=== PATIENT | female | born 1935 | race Caucasian/White ===

== ENCOUNTER → 2016-07-12 | Outpatient (CLI) | payer MEDICARE, BC, OTHER ==
--- NOTE | 2016-07-12 17:51 | REP ---
Chest x-ray: Two views: History: Paroxysmal atrial fibrillation. Comparison chest x-ray: 11/21/2015. Findings: Cardiomegaly is again observed with a bipolar pacemaker in place unchanged from the prior study. Pulmonary vasculature is not increased. The pleural angles are sharp. Lung iraheta are symmetrically aerated and clear. There are degenerative changes in the thoracic spine and aorta. There is advanced arthropathy affecting the shoulders. Impression: Mild to moderate cardiomegaly unchanged from prior study with bipolar pacemaker. Otherwise no acute disease. Signed by Bret Quiroz MD 07/12/2016 07:47 P
[2016-07-12 17:58] LABS: ALBUMIN 3.9 GM/DL (3.2-5.2); ALBUMIN/GLOBULIN RATIO 1.11 (1.00-1.93); CALCIUM LEVEL 8.8 MG/DL (8.8-10.2); CREATININE FOR GFR 1.05 MG/DL (0.55-1.02); GLOMERULAR FILTRATION RATE 53.5 (>32); MAGNESIUM LEVEL 2.2 MG/DL (1.8-2.4); POTASSIUM SERUM 4.2 MEQ/L (3.5-5.1); TOTAL PROTEIN 7.4 GM/DL (6.4-8.2)
== END ==
LOC: M LAB 16:12
PROVIDERS: ATTEND Physician Assistant
DX: I48.0 Paroxysmal atrial fibrillation (principal)

== ENCOUNTER → 2017-01-11 | Outpatient (REF) | payer MEDICARE, OTHER ==
[2017-01-11 16:11] LABS: MEAN CORPUSCULAR HEMOGLOBIN 31.1 pg (27.0-33.0); MEAN CORPUSCULAR HGB CONC 32.2 g/dl (32.0-36.5); MEAN CORPUSCULAR VOLUME 96.7 fl (80.0-96.0); RED CELL DISTRIBUTION WIDTH 14.8 % (11.5-14.5); WHITE BLOOD COUNT 6.6 K/mm3 (4.0-10.0)
[2017-01-11 16:15] LABS: ALBUMIN 3.9 GM/DL (3.2-5.2); ALBUMIN/GLOBULIN RATIO 1.08 (1.00-1.93); CREATININE FOR GFR 1.02 MG/DL (0.55-1.02); GLOMERULAR FILTRATION RATE 55.4 (>32); MAGNESIUM LEVEL 2.3 MG/DL (1.8-2.4); POTASSIUM SERUM 4.4 MEQ/L (3.5-5.1); TOTAL PROTEIN 7.5 GM/DL (6.4-8.2)
== END ==
LOC: M LABDRAW1 15:39
PROVIDERS: ATTEND Physician Assistant
DX: I11.0 Hypertensive heart disease with heart failure (principal); I48.0 Paroxysmal atrial fibrillation

== ENCOUNTER → 2017-07-18 | Outpatient (REF) | payer MEDICARE, OTHER ==
[2017-07-18 19:09] LABS: HEMATOCRIT 44.8 % (36.0-47.0); HEMOGLOBIN 14.5 g/dl (12.0-16.0); MEAN CORPUSCULAR HEMOGLOBIN 31.5 pg (27.0-33.0); MEAN CORPUSCULAR HGB CONC 32.4 g/dl (32.0-36.5); MEAN CORPUSCULAR VOLUME 97.4 fl (80.0-96.0); PLATELET COUNT, AUTOMATED 173 10^3/uL (150-450); RED CELL DISTRIBUTION WIDTH 14.6 % (11.5-14.5); WHITE BLOOD COUNT 6.6 10^3/uL (4.0-10.0)
[2017-07-18 19:43] LABS: ALBUMIN 4.2 GM/DL (3.2-5.2); ALBUMIN/GLOBULIN RATIO 1.11 (1.00-1.93); ALKALINE PHOSPHATASE 68 U/L (45-117); ALT/SGPT 24 U/L (12-78); ANION GAP 8 MEQ/L (8-16); AST/SGOT 30 U/L (7-37); BILIRUBIN,TOTAL 1.2 MG/DL (0.2-1.0); BLOOD UREA NITROGEN 28 MG/DL (7-18); CALCIUM LEVEL 9.2 MG/DL (8.8-10.2); CARBON DIOXIDE LEVEL 28 MEQ/L (21-32); CHLORIDE LEVEL 102 MEQ/L (98-107); CREATININE FOR GFR 0.95 MG/DL (0.55-1.02); GLUCOSE, FASTING 127 MG/DL (70-100); POTASSIUM SERUM 4.3 MEQ/L (3.5-5.1); SODIUM LEVEL 138 MEQ/L (136-145)
== END ==
LOC: M LABDRAW1 15:15
DX: I48.0 Paroxysmal atrial fibrillation (principal)
CPT/HCPCS: 83735

== ENCOUNTER 2017-12-18 13:07 | Inpatient (IN) | payer MEDICARE, BC, OTHER ==
[2017-12-18] MEDS: CANDESARTAN 16 MG TABLET PO (09:00)
[2017-12-18] MEDS: MULTIVITAMINS/MINERALS THERAP 1 TAB PO (09:00)
[2017-12-18] MEDS: VITAMIN D 1,000 INTERNATIONAL UNITS TABLET PO (09:00)
[2017-12-18] MEDS: BISOPROLOL FUMARATE 5 MG TAB PO (09:00)
[2017-12-18] MEDS: AMIODARONE 200 MG TAB (PACERONE) PO (09:00)
[2017-12-18] MEDS: ASPIRIN 81 MG ENTERIC TAB PO (09:00)
[~2017-12-18 13:07] MED LIST: CHLORTHALIDONE 12.5MG PER 1/2 TABLET PO; CHLORTHALIDONE 25 MG TAB PO
[2017-12-18 14:17] LABS: BASO % 0.4 % (0.0-1.0); EOS % 0.1 % (0.0-3.0); HEMATOCRIT 39.6 % (36.0-47.0); HEMOGLOBIN 12.8 g/dl (12.0-15.5); IMMATURE GRANULOCYTE % 0.5 % (0-3.0); LYMPH # 0.4 10^3/uL (1.5-4.5); LYMPH % 4.3 % (24.0-44.0); MEAN CORPUSCULAR HEMOGLOBIN 30.4 pg (27.0-33.0); MEAN CORPUSCULAR HGB CONC 32.3 g/dl (32.0-36.5); MEAN CORPUSCULAR VOLUME 94.1 fl (80.0-96.0); MONO # 0.7 10^3/uL (0.0-0.8); MONO % 8.2 % (0.0-5.0); NEUTROPHILS % 86.5 % (36.0-66.0); PLATELET COUNT, AUTOMATED 149 10^3/uL (150-450); RED BLOOD COUNT 4.21 10^6/uL (4.00-5.40); RED CELL DISTRIBUTION WIDTH 14.6 % (11.5-14.5); WHITE BLOOD COUNT 8.1 10^3/uL (4.0-10.0)
[2017-12-18 14:38] LABS: ALBUMIN 3.2 GM/DL (3.2-5.2); ALBUMIN/GLOBULIN RATIO 0.82 (1.00-1.93); ALKALINE PHOSPHATASE 101 U/L (45-117); ALT/SGPT 25 U/L (12-78); ANION GAP 10 MEQ/L (8-16); AST/SGOT 48 U/L (7-37); BILIRUBIN,DIRECT 0.7 MG/DL (0.0-0.2); BILIRUBIN,TOTAL 2.1 MG/DL (0.2-1.0); BLOOD UREA NITROGEN 32 MG/DL (7-18); CARBON DIOXIDE LEVEL 23 MEQ/L (21-32); CHLORIDE LEVEL 109 MEQ/L (98-107); CPK CREATINE PHOSPHOKINASE 711 U/L (26-192); CREATININE FOR GFR 1.02 MG/DL (0.55-1.30); GLOMERULAR FILTRATION RATE 55.2 (>32); GLUCOSE, FASTING 128 MG/DL (70-100); POTASSIUM SERUM 4.2 MEQ/L (3.5-5.1); SODIUM LEVEL 142 MEQ/L (136-145); TOTAL PROTEIN 7.1 GM/DL (6.4-8.2); TROPONIN I 0.03 NG/ML (< 0.10)
[2017-12-18 14:39] LABS: CK-MB VALUE MASS 12.6 NG/ML (<3.6); MB/CK RELATIVE INDEX 1.77 (< OR =4)
[2017-12-18] MEDS: NS 1,000 ML IV ×3 (16:00→23:48)
[2017-12-18 16:37] LABS: AMORPHOUS SEDIMENT RFX SMALL (NEGATIVE); KETONE, URINE AUTO RFX NEGATIVE (NEGATIVE); LEUKOCYTE ESTERASE UR AUTO RFX NEGATIVE (NEGATIVE); MUCUS, URINE RFX SMALL (NEGATIVE); NITRITE, URINE AUTO RFX NEGATIVE (NEGATIVE); RBC, URINE AUTO RFX 3 /HPF (0-3); SPECIFIC GRAVITY UR AUTO RFX 1.026 (1.002-1.035); SQUAM EPITHELIAL CELL UR AURFX 3 /HPF (0-6); WBC, URINE AUTO RFX 3 /HPF (0-3)
[2017-12-18] MEDS: NAPROXEN 250 MG TAB PO (17:00)
[2017-12-18] MEDS: HumaLOG INSULIN (NovoLOG) PER UNIT SC (17:30)
[2017-12-18] MEDS ORDERED: GLUCOSE 4 GM CHEW TABLET PO (18:00)
[2017-12-18] MEDS ORDERED: GLUCAGON FOR INJ 1 MG VIAL (J1610) SC (18:00)
[2017-12-18] MEDS ORDERED: zolPIDEM TARTRATE 10MG TAB PO (18:00)
[2017-12-18] MEDS ORDERED: DEXTROSE 50% 50 ML SYRINGE IV (18:00)
[2017-12-18 19:07] LABS: CPK CREATINE PHOSPHOKINASE 971 U/L (26-192); TROPONIN I 0.03 NG/ML (< 0.10)
[2017-12-18 19:08] LABS: CK-MB VALUE MASS 14.2 NG/ML (<3.6); MB/CK RELATIVE INDEX 1.46 (< OR =4)
[2017-12-18] MEDS ORDERED: PILL CRUSHER/CUTTER 1 EACH XX (19:15)
[2017-12-18] MEDS: FUROSEMIDE 20 MG/2 ML VIAL (J1940) IV (19:30)
[2017-12-18] MEDS: APIXABAN 5 MG TAB (ELIQUIS) PO (21:00)
[2017-12-18] MEDS: ATORVASTATIN 10 MG TAB PO (21:00)
[2017-12-18] MEDS: NYSTATIN 100,000 UNITS/GM TOPICAL PWD 15 GM TOP (23:50)
[2017-12-19 02:28] LABS: TROPONIN I 0.04 NG/ML (< 0.10)
[2017-12-19 02:31] LABS: CPK CREATINE PHOSPHOKINASE 999 U/L (26-192)
[2017-12-19] MEDS: NS 1,000 ML IV ×2 (04:00→07:38)
[2017-12-19] MEDS: LEVOTHYROXINE 50MCG TABLET (0.05MG) PO (05:50)
[2017-12-19] MEDS: CEPACOL LOZENGE PO (06:34)
[2017-12-19 07:10] LABS: HEMATOCRIT 36.8 % (36.0-47.0); HEMOGLOBIN 11.9 g/dl (12.0-15.5); MEAN CORPUSCULAR HEMOGLOBIN 30.4 pg (27.0-33.0); MEAN CORPUSCULAR HGB CONC 32.3 g/dl (32.0-36.5); MEAN CORPUSCULAR VOLUME 93.9 fl (80.0-96.0); PLATELET COUNT, AUTOMATED 106 10^3/uL (150-450); RED BLOOD COUNT 3.92 10^6/uL (4.00-5.40); RED CELL DISTRIBUTION WIDTH 14.7 % (11.5-14.5); WHITE BLOOD COUNT 5.3 10^3/uL (4.0-10.0)
[2017-12-19] MEDS: HumaLOG INSULIN (NovoLOG) PER UNIT SC ×3 (07:30→17:40)
[2017-12-19 07:39] LABS: ANION GAP 8 MEQ/L (8-16); BLOOD UREA NITROGEN 29 MG/DL (7-18); CALCIUM LEVEL 7.3 MG/DL (8.8-10.2); CARBON DIOXIDE LEVEL 24 MEQ/L (21-32); CHLORIDE LEVEL 112 MEQ/L (98-107); CPK CREATINE PHOSPHOKINASE 1071 U/L (26-192); CREATININE FOR GFR 1.06 MG/DL (0.55-1.30); GLOMERULAR FILTRATION RATE 52.8 (>32); GLUCOSE, FASTING 108 MG/DL (70-100); POTASSIUM SERUM 3.6 MEQ/L (3.5-5.1); SODIUM LEVEL 144 MEQ/L (136-145)
[2017-12-19] MEDS: ASPIRIN 81 MG ENTERIC TAB PO (09:00)
[2017-12-19] MEDS: MULTIVITAMINS/MINERALS THERAP 1 TAB PO (09:00)
[2017-12-19] MEDS: APIXABAN 5 MG TAB (ELIQUIS) PO ×2 (09:00→20:31)
[2017-12-19] MEDS: CANDESARTAN 16 MG TABLET PO (09:00)
[2017-12-19] MEDS: AMIODARONE 200 MG TAB (PACERONE) PO (09:00)
[2017-12-19] MEDS: VITAMIN D 1,000 INTERNATIONAL UNITS TABLET PO (09:00)
[2017-12-19] MEDS: NYSTATIN 100,000 UNITS/GM TOPICAL PWD 15 GM TOP ×2 (09:00→20:31)
[2017-12-19] MEDS: PANTOPRAZOLE 40MG TAB (PROTONIX) PO (09:00)
[2017-12-19] MEDS: BISOPROLOL FUMARATE 5 MG TAB PO (09:00)
[2017-12-19 11:30] LABS: TROPONIN I 0.03 NG/ML (< 0.10)
[2017-12-19 11:41] LABS: CK-MB VALUE MASS 9.9 NG/ML (<3.6); CPK CREATINE PHOSPHOKINASE 1184 U/L (26-192); MB/CK RELATIVE INDEX 0.83 (< OR =4)
[2017-12-19 12:03] LABS: BEDSIDE GLUCOSE 226 MG/DL (83-110)
[2017-12-19 18:48] LABS: CPK CREATINE PHOSPHOKINASE 1275 U/L (26-192)
[2017-12-19] MEDS: ATORVASTATIN 10 MG TAB PO (20:31)
[2017-12-19 21:13] LABS: BEDSIDE GLUCOSE 131 MG/DL (83-110)
[2017-12-19 21:13] LABS: BEDSIDE GLUCOSE 123 MG/DL (83-110)
[2017-12-20 05:37] LABS: HEMOGLOBIN 11.9 g/dl (12.0-15.5); MEAN CORPUSCULAR HEMOGLOBIN 29.7 pg (27.0-33.0); MEAN CORPUSCULAR HGB CONC 31.3 g/dl (32.0-36.5); MEAN CORPUSCULAR VOLUME 94.8 fl (80.0-96.0); PLATELET COUNT, AUTOMATED 122 10^3/uL (150-450); RED BLOOD COUNT 4.01 10^6/uL (4.00-5.40); RED CELL DISTRIBUTION WIDTH 14.6 % (11.5-14.5); WHITE BLOOD COUNT 6.6 10^3/uL (4.0-10.0)
[2017-12-20] MEDS: LEVOTHYROXINE 50MCG TABLET (0.05MG) PO (05:39)
[2017-12-20 06:18] LABS: ALBUMIN/GLOBULIN RATIO 0.88 (1.00-1.93); ALKALINE PHOSPHATASE 89 U/L (45-117); ALT/SGPT 31 U/L (12-78); ANION GAP 7 MEQ/L (8-16); AST/SGOT 72 U/L (7-37); BILIRUBIN,TOTAL 1.7 MG/DL (0.2-1.0); BLOOD UREA NITROGEN 29 MG/DL (7-18); CALCIUM LEVEL 7.6 MG/DL (8.8-10.2); CARBON DIOXIDE LEVEL 24 MEQ/L (21-32); CHLORIDE LEVEL 113 MEQ/L (98-107); CPK CREATINE PHOSPHOKINASE 1122 U/L (26-192); GLOMERULAR FILTRATION RATE 50.6 (>32); GLUCOSE, FASTING 131 MG/DL (70-100); MAGNESIUM LEVEL 1.9 MG/DL (1.8-2.4); POTASSIUM SERUM 4.2 MEQ/L (3.5-5.1); SODIUM LEVEL 144 MEQ/L (136-145); TOTAL PROTEIN 6.4 GM/DL (6.4-8.2)
[2017-12-20] MEDS: PANTOPRAZOLE 40MG TAB (PROTONIX) PO (09:44)
[2017-12-20] MEDS: CANDESARTAN 16 MG TABLET PO (09:44)
[2017-12-20] MEDS: HumaLOG INSULIN (NovoLOG) PER UNIT SC ×3 (09:44→18:36)
[2017-12-20] MEDS: MULTIVITAMINS/MINERALS THERAP 1 TAB PO (09:45)
[2017-12-20] MEDS: APIXABAN 5 MG TAB (ELIQUIS) PO ×2 (09:45→20:27)
[2017-12-20] MEDS: VITAMIN D 1,000 INTERNATIONAL UNITS TABLET PO (09:45)
[2017-12-20] MEDS: BISOPROLOL FUMARATE 5 MG TAB PO (09:45)
[2017-12-20] MEDS: AMIODARONE 200 MG TAB (PACERONE) PO (09:45)
[2017-12-20] MEDS: ASPIRIN 81 MG ENTERIC TAB PO (09:45)
[2017-12-20] MEDS: NYSTATIN 100,000 UNITS/GM TOPICAL PWD 15 GM TOP ×2 (09:46→20:27)
[2017-12-20 16:49] LABS: CPK CREATINE PHOSPHOKINASE 1138 U/L (26-192)
[2017-12-20] MEDS: ATORVASTATIN 10 MG TAB PO (20:27)
[2017-12-20 21:00] LABS: BEDSIDE GLUCOSE 142 MG/DL (83-110)
[2017-12-20 21:00] LABS: BEDSIDE GLUCOSE 158 MG/DL (83-110)
[2017-12-21] MEDS: LEVOTHYROXINE 50MCG TABLET (0.05MG) PO (05:28)
[2017-12-21 06:01] LABS: HEMATOCRIT 36.7 % (36.0-47.0); HEMOGLOBIN 11.7 g/dl (12.0-15.5); MEAN CORPUSCULAR HEMOGLOBIN 29.9 pg (27.0-33.0); MEAN CORPUSCULAR HGB CONC 31.9 g/dl (32.0-36.5); MEAN CORPUSCULAR VOLUME 93.9 fl (80.0-96.0); PLATELET COUNT, AUTOMATED 137 10^3/uL (150-450); RED BLOOD COUNT 3.91 10^6/uL (4.00-5.40); RED CELL DISTRIBUTION WIDTH 14.9 % (11.5-14.5); WHITE BLOOD COUNT 7.1 10^3/uL (4.0-10.0)
[2017-12-21 06:26] LABS: ALBUMIN 2.9 GM/DL (3.2-5.2); ALBUMIN/GLOBULIN RATIO 0.81 (1.00-1.93); ALKALINE PHOSPHATASE 92 U/L (45-117); ALT/SGPT 34 U/L (12-78); ANION GAP 9 MEQ/L (8-16); AST/SGOT 66 U/L (7-37); BILIRUBIN,TOTAL 1.7 MG/DL (0.2-1.0); BLOOD UREA NITROGEN 33 MG/DL (7-18); CALCIUM LEVEL 7.5 MG/DL (8.8-10.2); CARBON DIOXIDE LEVEL 22 MEQ/L (21-32); CHLORIDE LEVEL 114 MEQ/L (98-107); CREATININE FOR GFR 0.96 MG/DL (0.55-1.30); GLOMERULAR FILTRATION RATE 59.2 (>32); GLUCOSE, FASTING 126 MG/DL (70-100); MAGNESIUM LEVEL 2.1 MG/DL (1.8-2.4); POTASSIUM SERUM 4.2 MEQ/L (3.5-5.1); SODIUM LEVEL 145 MEQ/L (136-145); TOTAL PROTEIN 6.5 GM/DL (6.4-8.2)
[2017-12-21] MEDS: AMIODARONE 200 MG TAB (PACERONE) PO (07:51)
[2017-12-21] MEDS: BISOPROLOL FUMARATE 5 MG TAB PO (07:52)
[2017-12-21] MEDS: ASPIRIN 81 MG ENTERIC TAB PO (07:52)
[2017-12-21] MEDS: CANDESARTAN 16 MG TABLET PO (07:52)
[2017-12-21] MEDS: HumaLOG INSULIN (NovoLOG) PER UNIT SC ×3 (07:53→17:26)
[2017-12-21] MEDS: PANTOPRAZOLE 40MG TAB (PROTONIX) PO (07:53)
[2017-12-21] MEDS: MULTIVITAMINS/MINERALS THERAP 1 TAB PO (07:53)
[2017-12-21] MEDS: APIXABAN 5 MG TAB (ELIQUIS) PO ×2 (07:53→20:24)
[2017-12-21] MEDS: VITAMIN D 1,000 INTERNATIONAL UNITS TABLET PO (07:53)
[2017-12-21] MEDS: NYSTATIN 100,000 UNITS/GM TOPICAL PWD 15 GM TOP ×2 (07:54→20:25)
[2017-12-21] MEDS ORDERED: SLF 3 ML SYR IV (08:30)
[2017-12-21] MEDS: DORZOLAMIDE 2% OPHTH SOLN 10 ML BTL OU ×2 (10:23→20:25)
[2017-12-21] MEDS: SLF 3 ML SYR IV ×2 (14:00→20:26)
[2017-12-21 14:18] LABS: BEDSIDE GLUCOSE 140 MG/DL (83-110)
[2017-12-21 14:18] LABS: BEDSIDE GLUCOSE 152 MG/DL (83-110)
[2017-12-21 16:29] LABS: BEDSIDE GLUCOSE 184 MG/DL (83-110)
[2017-12-21] MEDS: ATORVASTATIN 10 MG TAB PO (20:24)
[2017-12-21] MEDS: ACETAMINOPHEN 500 MG TAB PO (20:26)
[2017-12-21] MEDS: ZIOPTAN 0.0015% OU (20:29)
[2017-12-21 20:47] LABS: BEDSIDE GLUCOSE 203 MG/DL (83-110)
[2017-12-22 05:39] LABS: HEMATOCRIT 36.9 % (36.0-47.0); HEMOGLOBIN 11.6 g/dl (12.0-15.5); MEAN CORPUSCULAR HEMOGLOBIN 29.5 pg (27.0-33.0); MEAN CORPUSCULAR HGB CONC 31.4 g/dl (32.0-36.5); MEAN CORPUSCULAR VOLUME 93.9 fl (80.0-96.0); PLATELET COUNT, AUTOMATED 135 10^3/uL (150-450); RED BLOOD COUNT 3.93 10^6/uL (4.00-5.40); WHITE BLOOD COUNT 5.9 10^3/uL (4.0-10.0)
[2017-12-22] MEDS: SLF 3 ML SYR IV ×3 (05:49→20:34)
[2017-12-22] MEDS: LEVOTHYROXINE 50MCG TABLET (0.05MG) PO (05:49)
[2017-12-22 06:05] LABS: ALBUMIN/GLOBULIN RATIO 0.88 (1.00-1.93); ALKALINE PHOSPHATASE 91 U/L (45-117); ALT/SGPT 33 U/L (12-78); ANION GAP 8 MEQ/L (8-16); AST/SGOT 59 U/L (7-37); BLOOD UREA NITROGEN 32 MG/DL (7-18); CALCIUM LEVEL 7.8 MG/DL (8.8-10.2); CARBON DIOXIDE LEVEL 24 MEQ/L (21-32); CHLORIDE LEVEL 113 MEQ/L (98-107); CPK CREATINE PHOSPHOKINASE 851 U/L (26-192); GLOMERULAR FILTRATION RATE 56.5 (>32); GLUCOSE, FASTING 127 MG/DL (70-100); POTASSIUM SERUM 4.2 MEQ/L (3.5-5.1); SODIUM LEVEL 145 MEQ/L (136-145); TOTAL PROTEIN 6.4 GM/DL (6.4-8.2)
[2017-12-22] MEDS: VITAMIN D 1,000 INTERNATIONAL UNITS TABLET PO (08:57)
[2017-12-22] MEDS: AMIODARONE 200 MG TAB (PACERONE) PO (08:57)
[2017-12-22] MEDS: CANDESARTAN 16 MG TABLET PO (08:57)
[2017-12-22] MEDS: HumaLOG INSULIN (NovoLOG) PER UNIT SC ×3 (08:57→16:31)
[2017-12-22] MEDS: PANTOPRAZOLE 40MG TAB (PROTONIX) PO (08:57)
[2017-12-22] MEDS: APIXABAN 5 MG TAB (ELIQUIS) PO ×2 (08:57→20:32)
[2017-12-22] MEDS: MULTIVITAMINS/MINERALS THERAP 1 TAB PO (08:58)
[2017-12-22] MEDS: DORZOLAMIDE 2% OPHTH SOLN 10 ML BTL OU ×2 (08:58→20:32)
[2017-12-22] MEDS: ASPIRIN 81 MG ENTERIC TAB PO (08:58)
[2017-12-22] MEDS: NYSTATIN 100,000 UNITS/GM TOPICAL PWD 15 GM TOP ×2 (08:58→20:33)
[2017-12-22] MEDS: BISOPROLOL FUMARATE 5 MG TAB PO (08:58)
[2017-12-22 11:34] LABS: BEDSIDE GLUCOSE 143 MG/DL (83-110)
[2017-12-22 16:30] LABS: BEDSIDE GLUCOSE 156 MG/DL (83-110)
[2017-12-22] MEDS: ZIOPTAN 0.0015% OU (20:32)
[2017-12-22] MEDS: ATORVASTATIN 10 MG TAB PO (20:32)
[2017-12-22 22:31] LABS: BEDSIDE GLUCOSE 156 MG/DL (83-110)
[2017-12-23 06:21] LABS: HEMATOCRIT 36.5 % (36.0-47.0); HEMOGLOBIN 11.8 g/dl (12.0-15.5); MEAN CORPUSCULAR HEMOGLOBIN 30.6 pg (27.0-33.0); MEAN CORPUSCULAR HGB CONC 32.3 g/dl (32.0-36.5); MEAN CORPUSCULAR VOLUME 94.6 fl (80.0-96.0); PLATELET COUNT, AUTOMATED 140 10^3/uL (150-450); RED BLOOD COUNT 3.86 10^6/uL (4.00-5.40); RED CELL DISTRIBUTION WIDTH 15.4 % (11.5-14.5); WHITE BLOOD COUNT 6.4 10^3/uL (4.0-10.0)
[2017-12-23 06:33] LABS: ALBUMIN 2.9 GM/DL (3.2-5.2); ALBUMIN/GLOBULIN RATIO 0.83 (1.00-1.93); ALKALINE PHOSPHATASE 94 U/L (45-117); ALT/SGPT 33 U/L (12-78); ANION GAP 8 MEQ/L (8-16); AST/SGOT 55 U/L (7-37); BILIRUBIN,TOTAL 2.4 MG/DL (0.2-1.0); BLOOD UREA NITROGEN 32 MG/DL (7-18); CALCIUM LEVEL 7.8 MG/DL (8.8-10.2); CARBON DIOXIDE LEVEL 24 MEQ/L (21-32); CHLORIDE LEVEL 115 MEQ/L (98-107); CREATININE FOR GFR 0.84 MG/DL (0.55-1.30); GLOMERULAR FILTRATION RATE > 60.0 (>32); GLUCOSE, FASTING 123 MG/DL (70-100); MAGNESIUM LEVEL 2.2 MG/DL (1.8-2.4); POTASSIUM SERUM 4.2 MEQ/L (3.5-5.1); SODIUM LEVEL 147 MEQ/L (136-145); TOTAL PROTEIN 6.4 GM/DL (6.4-8.2)
[2017-12-23] MEDS: SLF 3 ML SYR IV (06:40)
[2017-12-23] MEDS: LEVOTHYROXINE 50MCG TABLET (0.05MG) PO (06:40)
[2017-12-23] MEDS: AMIODARONE 200 MG TAB (PACERONE) PO (07:48)
[2017-12-23] MEDS: PANTOPRAZOLE 40MG TAB (PROTONIX) PO (07:48)
[2017-12-23] MEDS: DORZOLAMIDE 2% OPHTH SOLN 10 ML BTL OU (07:48)
[2017-12-23] MEDS: APIXABAN 5 MG TAB (ELIQUIS) PO (07:48)
[2017-12-23] MEDS: MULTIVITAMINS/MINERALS THERAP 1 TAB PO (07:48)
[2017-12-23] MEDS: HumaLOG INSULIN (NovoLOG) PER UNIT SC ×2 (07:48→11:55)
[2017-12-23] MEDS: NYSTATIN 100,000 UNITS/GM TOPICAL PWD 15 GM TOP (07:49)
[2017-12-23] MEDS: ASPIRIN 81 MG ENTERIC TAB PO (07:49)
[2017-12-23] MEDS: VITAMIN D 1,000 INTERNATIONAL UNITS TABLET PO (07:49)
[2017-12-23] MEDS: CANDESARTAN 16 MG TABLET PO (07:49)
[2017-12-23] MEDS: BISOPROLOL FUMARATE 5 MG TAB PO (07:49)
[2017-12-23 11:31] LABS: BEDSIDE GLUCOSE 166 MG/DL (83-110)
== END 2017-12-23 13:15 | DRG 557 ==
LOC: M ED 13:07 → M ED INP 17:57 → M ICU 20:03 → M PCU 23:55
DX: M62.82 Rhabdomyolysis (principal); I50.33 Acute on chronic diastolic (congestive) heart failure; I11.0 Hypertensive heart disease with heart failure; E78.5 Hyperlipidemia, unspecified; E03.9 Hypothyroidism, unspecified; K21.9 Gastro-esophageal reflux disease without esophagitis; I48.91 Unspecified atrial fibrillation; Z79.01 Long term (current) use of anticoagulants; Z95.810 Presence of automatic (implantable) cardiac defibrillator; Z79.82 Long term (current) use of aspirin; Z79.899 Other long term (current) drug therapy

== ENCOUNTER → 2017-12-27 | Outpatient (CLI) | payer MEDICARE, BC, OTHER | LOC: M RAD 10:40 | DX: R60.0 Localized edema (principal) | CPT/HCPCS: 93970 ==

== ENCOUNTER → 2017-12-27 | Outpatient (REF) ==
[2017-12-27 11:05] LABS: NT-PRO BNP 2900 PG/ML (<450)
[2017-12-27 11:18] LABS: ANION GAP 10 MEQ/L (8-16); BLOOD UREA NITROGEN 27 MG/DL (7-18); CARBON DIOXIDE LEVEL 25 MEQ/L (21-32); CHLORIDE LEVEL 110 MEQ/L (98-107); CREATININE FOR GFR 0.94 MG/DL (0.55-1.30); GLOMERULAR FILTRATION RATE > 60.0 (>32); GLUCOSE, FASTING 123 MG/DL (70-100); SODIUM LEVEL 145 MEQ/L (136-145)
== END ==
DX: I50.9 Heart failure, unspecified (principal)

== ENCOUNTER → 2017-12-30 | Outpatient (REF) ==
[2017-12-30 12:38] LABS: HEMATOCRIT 36.1 % (36.0-47.0); HEMOGLOBIN 11.4 g/dl (12.0-15.5); MEAN CORPUSCULAR HEMOGLOBIN 29.8 pg (27.0-33.0); MEAN CORPUSCULAR HGB CONC 31.6 g/dl (32.0-36.5); MEAN CORPUSCULAR VOLUME 94.5 fl (80.0-96.0); PLATELET COUNT, AUTOMATED 132 10^3/uL (150-450); RED BLOOD COUNT 3.82 10^6/uL (4.00-5.40); RED CELL DISTRIBUTION WIDTH 16.4 % (11.5-14.5); WHITE BLOOD COUNT 6.1 10^3/uL (4.0-10.0)
[2017-12-30 13:20] LABS: ANION GAP 9 MEQ/L (8-16); BLOOD UREA NITROGEN 34 MG/DL (7-18); CALCIUM LEVEL 7.8 MG/DL (8.8-10.2); CARBON DIOXIDE LEVEL 29 MEQ/L (21-32); CHLORIDE LEVEL 107 MEQ/L (98-107); CPK CREATINE PHOSPHOKINASE 221 U/L (26-192); CREATININE FOR GFR 1.23 MG/DL (0.55-1.30); GLOMERULAR FILTRATION RATE 44.5 (>32); GLUCOSE, FASTING 193 MG/DL (70-100); POTASSIUM SERUM 3.5 MEQ/L (3.5-5.1); SODIUM LEVEL 145 MEQ/L (136-145)
== END ==
DX: M62.82 Rhabdomyolysis (principal)

== ENCOUNTER → 2018-01-04 | Outpatient (REF) ==
[2018-01-04 14:14] LABS: ANION GAP 7 MEQ/L (8-16); BLOOD UREA NITROGEN 36 MG/DL (7-18); CALCIUM LEVEL 8.1 MG/DL (8.8-10.2); CARBON DIOXIDE LEVEL 34 MEQ/L (21-32); CHLORIDE LEVEL 104 MEQ/L (98-107); CREATININE FOR GFR 1.46 MG/DL (0.55-1.30); GLOMERULAR FILTRATION RATE 36.5 (>32); GLUCOSE, FASTING 225 MG/DL (70-100); SODIUM LEVEL 145 MEQ/L (136-145)
== END ==
DX: R60.9 Edema, unspecified (principal)

== ENCOUNTER → 2018-01-09 | Outpatient (CLI) | payer MEDICARE, BC, OTHER | LOC: M RAD 14:22 | DX: I70.292 Other atherosclerosis of native arteries of extremities, left leg (principal) ==

== ENCOUNTER 2018-01-10 10:34 | Inpatient (IN) | payer MEDICARE, BC, OTHER ==
[2018-01-10 11:24] LABS: BASO % 0.5 % (0.0-1.0); EOS % 0.5 % (0.0-3.0); HEMATOCRIT 37.6 % (36.0-47.0); HEMOGLOBIN 11.5 g/dl (12.0-15.5); IMMATURE GRANULOCYTE % 0.5 % (0-3.0); LYMPH # 0.4 10^3/uL (1.5-4.5); LYMPH % 7.1 % (24.0-44.0); MEAN CORPUSCULAR HEMOGLOBIN 29.5 pg (27.0-33.0); MEAN CORPUSCULAR HGB CONC 30.6 g/dl (32.0-36.5); MEAN CORPUSCULAR VOLUME 96.4 fl (80.0-96.0); MONO # 0.7 10^3/uL (0.0-0.8); MONO % 10.6 % (0.0-5.0); NEUTROPHILS # 5.1 10^3/uL (1.8-7.7); NEUTROPHILS % 80.8 % (36.0-66.0); PLATELET COUNT, AUTOMATED 131 10^3/uL (150-450); RED CELL DISTRIBUTION WIDTH 16.9 % (11.5-14.5); WHITE BLOOD COUNT 6.2 10^3/uL (4.0-10.0)
[2018-01-10 11:37] LABS: INR 2.38; PROTHROMBIN TIME 26.5 SECONDS (12.1-14.4)
[2018-01-10 11:38] LABS: PARTIAL THROMBOPLASTIN TIME 38.6 SECONDS (25.4-37.6)
[2018-01-10 11:48] LABS: ERYTHROCYTE SEDIMENTATION RATE 17 mm/hr (0-30)
[2018-01-10 11:49] LABS: ALBUMIN 2.7 GM/DL (3.2-5.2); ALBUMIN/GLOBULIN RATIO 0.63 (1.00-1.93); ALKALINE PHOSPHATASE 149 U/L (45-117); ALT/SGPT 29 U/L (12-78); ANION GAP 8 MEQ/L (8-16); AST/SGOT 40 U/L (7-37); BILIRUBIN,DIRECT 0.9 MG/DL (0.0-0.2); BLOOD UREA NITROGEN 43 MG/DL (7-18); C REACTIVE PROTEIN QUANTITATIV 2.48 MG/DL (0.00-0.30); CARBON DIOXIDE LEVEL 27 MEQ/L (21-32); CHLORIDE LEVEL 105 MEQ/L (98-107); CREATININE FOR GFR 1.46 MG/DL (0.55-1.30); GLOMERULAR FILTRATION RATE 36.5 (>32); GLUCOSE, FASTING 181 MG/DL (70-100); LIPASE 210 U/L (73-393); POTASSIUM SERUM 4.1 MEQ/L (3.5-5.1); SODIUM LEVEL 140 MEQ/L (136-145)
[2018-01-10 12:04] LABS: LACTIC ACID SEPSIS PROTOCOL 2.4 MMOL/L (0.4-2.0)
[2018-01-10 13:23] LABS: NT-PRO BNP 2890 PG/ML (<450)
[2018-01-10] MEDS ORDERED: BISACODYL 10 MG SUPP PR (14:45)
[2018-01-10] MEDS ORDERED: ONDANSETRON 4MG/2ML VIAL (J2405) IV (14:45)
[2018-01-10] MEDS: FUROSEMIDE 40 MG/4 ML VIAL (J1940) IV (17:02)
[2018-01-10] MEDS: CEFTAROLINE FOSAMIL 400 MG in D5W MINI-BAG PLUS 50 ML IV (17:50)
[2018-01-10] MEDS: SENOKOT S TAB PO (21:05)
[2018-01-10] MEDS: CANDESARTAN 16 MG TABLET PO (21:05)
[2018-01-10] MEDS: ASPIRIN 81 MG ENTERIC TAB PO (21:05)
[2018-01-10] MEDS: ATORVASTATIN 10 MG TAB PO (21:05)
[2018-01-11 05:27] LABS: HEMATOCRIT 35.8 % (36.0-47.0); HEMOGLOBIN 11.1 g/dl (12.0-15.5); MEAN CORPUSCULAR HEMOGLOBIN 29.6 pg (27.0-33.0); MEAN CORPUSCULAR VOLUME 95.5 fl (80.0-96.0); PLATELET COUNT, AUTOMATED 117 10^3/uL (150-450); RED BLOOD COUNT 3.75 10^6/uL (4.00-5.40); RED CELL DISTRIBUTION WIDTH 16.8 % (11.5-14.5); WHITE BLOOD COUNT 5.2 10^3/uL (4.0-10.0)
[2018-01-11] MEDS: CEFTAROLINE FOSAMIL 400 MG in D5W MINI-BAG PLUS 50 ML IV ×2 (05:40→17:04)
[2018-01-11] MEDS: LEVOTHYROXINE 50MCG TABLET (0.05MG) PO (05:40)
[2018-01-11 05:47] LABS: ANION GAP 8 MEQ/L (8-16); BLOOD UREA NITROGEN 44 MG/DL (7-18); CARBON DIOXIDE LEVEL 29 MEQ/L (21-32); CHLORIDE LEVEL 107 MEQ/L (98-107); CREATININE FOR GFR 1.34 MG/DL (0.55-1.30); GLOMERULAR FILTRATION RATE 40.3 (>32); GLUCOSE, FASTING 145 MG/DL (70-100); POTASSIUM SERUM 3.8 MEQ/L (3.5-5.1); SODIUM LEVEL 144 MEQ/L (136-145)
[2018-01-11] MEDS: SENOKOT S TAB PO ×2 (08:05→20:02)
[2018-01-11] MEDS: FUROSEMIDE 40 MG/4 ML VIAL (J1940) IV ×2 (08:05→17:03)
[2018-01-11] MEDS: SILVER SULFADIAZINE 1% CR 50 GM JAR TOP (08:05)
[2018-01-11] MEDS: AMIODARONE 200 MG TAB (PACERONE) PO (08:05)
[2018-01-11] MEDS: BISOPROLOL FUMARATE 5 MG TAB PO (08:06)
[2018-01-11 08:49] LABS: C REACTIVE PROTEIN QUANTITATIV 1.95 MG/DL (0.00-0.30)
[2018-01-11] MEDS: LACTOBACILLUS ACIDOPHILUS CAP (BACID) PO ×2 (12:05→17:04)
[2018-01-11] MEDS: CANDESARTAN 16 MG TABLET PO (20:02)
[2018-01-11] MEDS: ATORVASTATIN 10 MG TAB PO (20:02)
[2018-01-11] MEDS: ASPIRIN 81 MG ENTERIC TAB PO (20:02)
[2018-01-12] MEDS: CEFTAROLINE FOSAMIL 400 MG in D5W MINI-BAG PLUS 50 ML IV ×2 (05:24→16:22)
[2018-01-12] MEDS: LEVOTHYROXINE 50MCG TABLET (0.05MG) PO (05:24)
[2018-01-12 06:10] LABS: HEMATOCRIT 33.1 % (36.0-47.0); HEMOGLOBIN 10.2 g/dl (12.0-15.5); MEAN CORPUSCULAR HEMOGLOBIN 28.7 pg (27.0-33.0); MEAN CORPUSCULAR HGB CONC 30.8 g/dl (32.0-36.5); MEAN CORPUSCULAR VOLUME 93.2 fl (80.0-96.0); PLATELET COUNT, AUTOMATED 130 10^3/uL (150-450); RED BLOOD COUNT 3.55 10^6/uL (4.00-5.40); RED CELL DISTRIBUTION WIDTH 16.9 % (11.5-14.5); WHITE BLOOD COUNT 4.7 10^3/uL (4.0-10.0)
[2018-01-12 06:28] LABS: ANION GAP 6 MEQ/L (8-16); BLOOD UREA NITROGEN 44 MG/DL (7-18); C REACTIVE PROTEIN QUANTITATIV 1.47 MG/DL (0.00-0.30); CALCIUM LEVEL 7.8 MG/DL (8.8-10.2); CARBON DIOXIDE LEVEL 31 MEQ/L (21-32); CHLORIDE LEVEL 105 MEQ/L (98-107); GLOMERULAR FILTRATION RATE 41.7 (>32); GLUCOSE, FASTING 144 MG/DL (70-100); MAGNESIUM LEVEL 2.6 MG/DL (1.8-2.4); POTASSIUM SERUM 3.5 MEQ/L (3.5-5.1); SODIUM LEVEL 142 MEQ/L (136-145)
[2018-01-12] MEDS: LACTOBACILLUS ACIDOPHILUS CAP (BACID) PO ×3 (08:04→17:40)
[2018-01-12] MEDS: BISOPROLOL FUMARATE 5 MG TAB PO (08:05)
[2018-01-12] MEDS: SENOKOT S TAB PO ×2 (08:05→20:00)
[2018-01-12] MEDS: AMIODARONE 200 MG TAB (PACERONE) PO (08:05)
[2018-01-12] MEDS: FUROSEMIDE 40 MG/4 ML VIAL (J1940) IV (08:06)
[2018-01-12] MEDS: MIRALAX *UNIT DOSE* 17GM PACKET PO (09:00)
[2018-01-12] MEDS: APIXABAN 5 MG TAB (ELIQUIS) PO ×2 (09:53→20:00)
[2018-01-12] MEDS: ACETAMINOPHEN 500 MG TAB PO (11:52)
[2018-01-12] MEDS: NORCO, ANEXSIA 5/325MG TABLET (HYDROcodone/ACETAMINOPHEN) PO (13:19)
[2018-01-12] MEDS: ATORVASTATIN 10 MG TAB PO (20:00)
[2018-01-12] MEDS: ASPIRIN 81 MG ENTERIC TAB PO (20:00)
[2018-01-12] MEDS: CANDESARTAN 16 MG TABLET PO (20:00)
[2018-01-13] MEDS: LEVOTHYROXINE 50MCG TABLET (0.05MG) PO (05:30)
[2018-01-13] MEDS: CEFTAROLINE FOSAMIL 400 MG in D5W MINI-BAG PLUS 50 ML IV (05:30)
[2018-01-13 06:42] LABS: HEMOGLOBIN 10.7 g/dl (12.0-15.5); MEAN CORPUSCULAR HEMOGLOBIN 29.7 pg (27.0-33.0); MEAN CORPUSCULAR HGB CONC 30.6 g/dl (32.0-36.5); MEAN CORPUSCULAR VOLUME 97.2 fl (80.0-96.0); PLATELET COUNT, AUTOMATED 131 10^3/uL (150-450); RED CELL DISTRIBUTION WIDTH 16.8 % (11.5-14.5); WHITE BLOOD COUNT 4.5 10^3/uL (4.0-10.0)
[2018-01-13 06:48] LABS: ANION GAP 9 MEQ/L (8-16); BLOOD UREA NITROGEN 44 MG/DL (7-18); CALCIUM LEVEL 7.8 MG/DL (8.8-10.2); CARBON DIOXIDE LEVEL 29 MEQ/L (21-32); CHLORIDE LEVEL 106 MEQ/L (98-107); CREATININE FOR GFR 1.59 MG/DL (0.55-1.30); GLOMERULAR FILTRATION RATE 33.1 (>32); GLUCOSE, FASTING 142 MG/DL (70-100); MAGNESIUM LEVEL 2.6 MG/DL (1.8-2.4); SODIUM LEVEL 144 MEQ/L (136-145)
[2018-01-13] MEDS: MIRALAX *UNIT DOSE* 17GM PACKET PO (08:34)
[2018-01-13] MEDS: LACTOBACILLUS ACIDOPHILUS CAP (BACID) PO ×3 (08:34→17:33)
[2018-01-13] MEDS: BISACODYL 5 MG TAB PO (08:43)
[2018-01-13] MEDS: SENOKOT S TAB PO ×2 (08:43→21:27)
[2018-01-13] MEDS: APIXABAN 5 MG TAB (ELIQUIS) PO ×2 (08:43→21:27)
[2018-01-13] MEDS: AMIODARONE 200 MG TAB (PACERONE) PO (08:43)
[2018-01-13] MEDS: TORSEMIDE 20 MG TAB PO (08:43)
[2018-01-13] MEDS: SILVER SULFADIAZINE 1% CR 50 GM JAR TOP (08:44)
[2018-01-13] MEDS: BISOPROLOL FUMARATE 5 MG TAB PO (08:44)
[2018-01-13] MEDS: LINEZOLID 600MG TABLET (ZYVOX) PO ×2 (14:47→21:27)
[2018-01-13] MEDS: ACETAMINOPHEN 500 MG TAB PO (17:34)
[2018-01-13] MEDS: ATORVASTATIN 10 MG TAB PO (21:26)
[2018-01-13] MEDS: ASPIRIN 81 MG ENTERIC TAB PO (21:27)
[2018-01-14] MEDS: LEVOTHYROXINE 50MCG TABLET (0.05MG) PO (05:41)
[2018-01-14 06:07] LABS: HEMATOCRIT 34.6 % (36.0-47.0); HEMOGLOBIN 10.6 g/dl (12.0-15.5); MEAN CORPUSCULAR HEMOGLOBIN 29.4 pg (27.0-33.0); MEAN CORPUSCULAR HGB CONC 30.6 g/dl (32.0-36.5); MEAN CORPUSCULAR VOLUME 95.8 fl (80.0-96.0); PLATELET COUNT, AUTOMATED 121 10^3/uL (150-450); RED BLOOD COUNT 3.61 10^6/uL (4.00-5.40); RED CELL DISTRIBUTION WIDTH 16.6 % (11.5-14.5); WHITE BLOOD COUNT 4.9 10^3/uL (4.0-10.0)
[2018-01-14 06:19] LABS: ANION GAP 7 MEQ/L (8-16); BLOOD UREA NITROGEN 48 MG/DL (7-18); C REACTIVE PROTEIN QUANTITATIV 0.97 MG/DL (0.00-0.30); CALCIUM LEVEL 7.8 MG/DL (8.8-10.2); CARBON DIOXIDE LEVEL 28 MEQ/L (21-32); CHLORIDE LEVEL 105 MEQ/L (98-107); CREATININE FOR GFR 1.63 MG/DL (0.55-1.30); GLOMERULAR FILTRATION RATE 32.2 (>32); GLUCOSE, FASTING 142 MG/DL (70-100); MAGNESIUM LEVEL 2.7 MG/DL (1.8-2.4); POTASSIUM SERUM 4.3 MEQ/L (3.5-5.1); SODIUM LEVEL 140 MEQ/L (136-145)
[2018-01-14] MEDS ORDERED: TORSEMIDE 20 MG TAB PO (09:00)
[2018-01-14] MEDS: MIRALAX *UNIT DOSE* 17GM PACKET PO (10:04)
[2018-01-14] MEDS: LACTOBACILLUS ACIDOPHILUS CAP (BACID) PO ×3 (10:04→18:27)
[2018-01-14] MEDS: LINEZOLID 600MG TABLET (ZYVOX) PO ×2 (10:04→20:59)
[2018-01-14] MEDS: APIXABAN 5 MG TAB (ELIQUIS) PO ×2 (10:05→20:59)
[2018-01-14] MEDS: SENOKOT S TAB PO ×2 (10:05→20:59)
[2018-01-14] MEDS: AMIODARONE 200 MG TAB (PACERONE) PO (10:07)
[2018-01-14] MEDS: NS 1,000 ML IV (10:25)
[2018-01-14] MEDS: BISOPROLOL FUMARATE 5 MG TAB PO (10:26)
[2018-01-14] MEDS: SILVER SULFADIAZINE 1% CR 50 GM JAR TOP (18:31)
[2018-01-14] MEDS: ASPIRIN 81 MG ENTERIC TAB PO (20:59)
[2018-01-14] MEDS: ATORVASTATIN 10 MG TAB PO (20:59)
[2018-01-14] MEDS ORDERED: CANDESARTAN 16 MG TABLET PO (21:00)
[2018-01-15] MEDS: LEVOTHYROXINE 50MCG TABLET (0.05MG) PO (05:39)
[2018-01-15 05:56] LABS: HEMOGLOBIN 10.9 g/dl (12.0-15.5); MEAN CORPUSCULAR HEMOGLOBIN 28.5 pg (27.0-33.0); MEAN CORPUSCULAR HGB CONC 30.3 g/dl (32.0-36.5); MEAN CORPUSCULAR VOLUME 94.2 fl (80.0-96.0); PLATELET COUNT, AUTOMATED 133 10^3/uL (150-450); RED BLOOD COUNT 3.82 10^6/uL (4.00-5.40); RED CELL DISTRIBUTION WIDTH 16.6 % (11.5-14.5); WHITE BLOOD COUNT 4.9 10^3/uL (4.0-10.0)
[2018-01-15 06:24] LABS: ANION GAP 9 MEQ/L (8-16); BLOOD UREA NITROGEN 49 MG/DL (7-18); C REACTIVE PROTEIN QUANTITATIV 1.16 MG/DL (0.00-0.30); CARBON DIOXIDE LEVEL 27 MEQ/L (21-32); CHLORIDE LEVEL 103 MEQ/L (98-107); CREATININE FOR GFR 1.55 MG/DL (0.55-1.30); GLOMERULAR FILTRATION RATE 34.1 (>32); GLUCOSE, FASTING 145 MG/DL (70-100); MAGNESIUM LEVEL 2.7 MG/DL (1.8-2.4); POTASSIUM SERUM 4.3 MEQ/L (3.5-5.1); SODIUM LEVEL 139 MEQ/L (136-145)
[2018-01-15] MEDS: MIRALAX *UNIT DOSE* 17GM PACKET PO (09:14)
[2018-01-15] MEDS: LACTOBACILLUS ACIDOPHILUS CAP (BACID) PO ×3 (09:14→17:18)
[2018-01-15] MEDS: SENOKOT S TAB PO ×2 (09:14→20:37)
[2018-01-15] MEDS: LINEZOLID 600MG TABLET (ZYVOX) PO ×2 (09:15→20:36)
[2018-01-15] MEDS: BISOPROLOL FUMARATE 5 MG TAB PO (09:15)
[2018-01-15] MEDS: APIXABAN 5 MG TAB (ELIQUIS) PO ×2 (09:15→20:36)
[2018-01-15] MEDS: AMIODARONE 200 MG TAB (PACERONE) PO (09:15)
[2018-01-15] MEDS: TORSEMIDE 20 MG TAB PO (09:15)
[2018-01-15] MEDS: ATORVASTATIN 10 MG TAB PO (20:36)
[2018-01-15] MEDS: ASPIRIN 81 MG ENTERIC TAB PO (20:36)
[2018-01-16] MEDS: LEVOTHYROXINE 50MCG TABLET (0.05MG) PO (05:56)
[2018-01-16] MEDS: SILVER SULFADIAZINE 1% CR 50 GM JAR TOP (06:00)
[2018-01-16 06:38] LABS: HEMATOCRIT 35.8 % (36.0-47.0); MEAN CORPUSCULAR HEMOGLOBIN 29.3 pg (27.0-33.0); MEAN CORPUSCULAR HGB CONC 30.7 g/dl (32.0-36.5); MEAN CORPUSCULAR VOLUME 95.2 fl (80.0-96.0); PLATELET COUNT, AUTOMATED 139 10^3/uL (150-450); RED BLOOD COUNT 3.76 10^6/uL (4.00-5.40); RED CELL DISTRIBUTION WIDTH 16.5 % (11.5-14.5); WHITE BLOOD COUNT 4.7 10^3/uL (4.0-10.0)
[2018-01-16 06:54] LABS: ANION GAP 8 MEQ/L (8-16); BLOOD UREA NITROGEN 49 MG/DL (7-18); CALCIUM LEVEL 8.1 MG/DL (8.8-10.2); CARBON DIOXIDE LEVEL 27 MEQ/L (21-32); CHLORIDE LEVEL 104 MEQ/L (98-107); CREATININE FOR GFR 1.74 MG/DL (0.55-1.30); GLOMERULAR FILTRATION RATE 29.8 (>32); GLUCOSE, FASTING 136 MG/DL (70-100); MAGNESIUM LEVEL 2.5 MG/DL (1.8-2.4); POTASSIUM SERUM 4.4 MEQ/L (3.5-5.1); SODIUM LEVEL 139 MEQ/L (136-145)
[2018-01-16] MEDS: SENOKOT S TAB PO ×2 (07:44→20:05)
[2018-01-16] MEDS: LINEZOLID 600MG TABLET (ZYVOX) PO ×2 (07:44→20:03)
[2018-01-16] MEDS: NS 1,000 ML IV ×2 (07:44→20:04)
[2018-01-16] MEDS: APIXABAN 5 MG TAB (ELIQUIS) PO ×2 (07:44→20:03)
[2018-01-16] MEDS: LACTOBACILLUS ACIDOPHILUS CAP (BACID) PO ×3 (07:44→17:28)
[2018-01-16] MEDS: BISOPROLOL FUMARATE 5 MG TAB PO (07:47)
[2018-01-16] MEDS: MIRALAX *UNIT DOSE* 17GM PACKET PO (07:47)
[2018-01-16] MEDS: AMIODARONE 200 MG TAB (PACERONE) PO (07:47)
[2018-01-16] MEDS: ACETAMINOPHEN 500 MG TAB PO (07:52)
[2018-01-16 15:04] LABS: SODIUM,RANDOM URINE 16 MEQ/L
[2018-01-16 15:04] LABS: CREATININE,RANDOM URINE 97.4 MG/DL
[2018-01-16] MEDS: ATORVASTATIN 10 MG TAB PO (20:03)
[2018-01-16] MEDS: ASPIRIN 81 MG ENTERIC TAB PO (20:03)
[2018-01-17] MEDS: LEVOTHYROXINE 50MCG TABLET (0.05MG) PO (05:46)
[2018-01-17 06:12] LABS: HEMATOCRIT 34.3 % (36.0-47.0); HEMOGLOBIN 10.5 g/dl (12.0-15.5); MEAN CORPUSCULAR HEMOGLOBIN 28.9 pg (27.0-33.0); MEAN CORPUSCULAR HGB CONC 30.6 g/dl (32.0-36.5); MEAN CORPUSCULAR VOLUME 94.5 fl (80.0-96.0); PLATELET COUNT, AUTOMATED 131 10^3/uL (150-450); RED BLOOD COUNT 3.63 10^6/uL (4.00-5.40); RED CELL DISTRIBUTION WIDTH 16.7 % (11.5-14.5)
[2018-01-17 06:29] LABS: ANION GAP 7 MEQ/L (8-16); BLOOD UREA NITROGEN 44 MG/DL (7-18); C REACTIVE PROTEIN QUANTITATIV 0.73 MG/DL (0.00-0.30); CALCIUM LEVEL 7.8 MG/DL (8.8-10.2); CARBON DIOXIDE LEVEL 26 MEQ/L (21-32); CHLORIDE LEVEL 108 MEQ/L (98-107); CREATININE FOR GFR 1.43 MG/DL (0.55-1.30); GLOMERULAR FILTRATION RATE 37.4 (>32); GLUCOSE, FASTING 128 MG/DL (70-100); MAGNESIUM LEVEL 2.4 MG/DL (1.8-2.4); POTASSIUM SERUM 4.2 MEQ/L (3.5-5.1); SODIUM LEVEL 141 MEQ/L (136-145)
[2018-01-17] MEDS: MIRALAX *UNIT DOSE* 17GM PACKET PO (09:09)
[2018-01-17] MEDS: LINEZOLID 600MG TABLET (ZYVOX) PO ×2 (09:13→20:10)
[2018-01-17] MEDS: BISOPROLOL FUMARATE 5 MG TAB PO (09:13)
[2018-01-17] MEDS: AMIODARONE 200 MG TAB (PACERONE) PO (09:13)
[2018-01-17] MEDS: SENOKOT S TAB PO ×2 (09:13→20:12)
[2018-01-17] MEDS: APIXABAN 5 MG TAB (ELIQUIS) PO ×2 (09:13→20:10)
[2018-01-17] MEDS: LACTOBACILLUS ACIDOPHILUS CAP (BACID) PO ×3 (09:14→18:01)
[2018-01-17] MEDS: ATORVASTATIN 10 MG TAB PO (20:10)
[2018-01-17] MEDS: ASPIRIN 81 MG ENTERIC TAB PO (20:10)
[2018-01-18] MEDS: LEVOTHYROXINE 50MCG TABLET (0.05MG) PO (05:56)
[2018-01-18] MEDS: SILVER SULFADIAZINE 1% CR 50 GM JAR TOP (05:57)
[2018-01-18 06:51] LABS: MAGNESIUM LEVEL 2.5 MG/DL (1.8-2.4)
[2018-01-18 08:14] LABS: BLOOD UREA NITROGEN 41 MG/DL (7-18); CALCIUM LEVEL 7.8 MG/DL (8.8-10.2); CHLORIDE LEVEL 108 MEQ/L (98-107); CREATININE FOR GFR 1.41 MG/DL (0.55-1.30); GLUCOSE, FASTING 131 MG/DL (70-100); POTASSIUM SERUM 4.1 MEQ/L (3.5-5.1); SODIUM LEVEL 143 MEQ/L (136-145)
[2018-01-18 08:33] LABS: ANION GAP 9 MEQ/L (8-16); CARBON DIOXIDE LEVEL 26 MEQ/L (21-32)
[2018-01-18] MEDS: MIRALAX *UNIT DOSE* 17GM PACKET PO (09:07)
[2018-01-18] MEDS: LACTOBACILLUS ACIDOPHILUS CAP (BACID) PO ×3 (09:07→17:04)
[2018-01-18] MEDS: APIXABAN 5 MG TAB (ELIQUIS) PO ×2 (09:10→21:09)
[2018-01-18] MEDS: AMIODARONE 200 MG TAB (PACERONE) PO (09:10)
[2018-01-18] MEDS: BISOPROLOL FUMARATE 5 MG TAB PO (09:10)
[2018-01-18] MEDS: LINEZOLID 600MG TABLET (ZYVOX) PO ×2 (09:10→21:09)
[2018-01-18] MEDS: SENOKOT S TAB PO ×3 (09:10→21:17)
[2018-01-18] MEDS: NS 1,000 ML IV (12:06)
[2018-01-18] MEDS: ASPIRIN 81 MG ENTERIC TAB PO (21:09)
[2018-01-18] MEDS: ATORVASTATIN 10 MG TAB PO (21:09)
[2018-01-19] MEDS: NORCO, ANEXSIA 5/325MG TABLET (HYDROcodone/ACETAMINOPHEN) PO (04:40)
[2018-01-19] MEDS: LEVOTHYROXINE 50MCG TABLET (0.05MG) PO (05:34)
[2018-01-19] MEDS: LACTOBACILLUS ACIDOPHILUS CAP (BACID) PO ×3 (08:39→17:29)
[2018-01-19] MEDS: LINEZOLID 600MG TABLET (ZYVOX) PO (08:39)
[2018-01-19] MEDS: APIXABAN 5 MG TAB (ELIQUIS) PO ×2 (08:39→20:09)
[2018-01-19] MEDS: AMIODARONE 200 MG TAB (PACERONE) PO (08:39)
[2018-01-19] MEDS: SENOKOT S TAB PO ×2 (08:40→20:09)
[2018-01-19] MEDS: BISOPROLOL FUMARATE 5 MG TAB PO (08:40)
[2018-01-19] MEDS: MIRALAX *UNIT DOSE* 17GM PACKET PO (08:41)
[2018-01-19 09:06] LABS: ANION GAP 8 MEQ/L (8-16); BLOOD UREA NITROGEN 37 MG/DL (7-18); CALCIUM LEVEL 7.5 MG/DL (8.8-10.2); CARBON DIOXIDE LEVEL 23 MEQ/L (21-32); CHLORIDE LEVEL 108 MEQ/L (98-107); CREATININE FOR GFR 1.42 MG/DL (0.55-1.30); GLOMERULAR FILTRATION RATE 37.7 (>32); GLUCOSE, FASTING 166 MG/DL (70-100); POTASSIUM SERUM 4.3 MEQ/L (3.5-5.1); SODIUM LEVEL 139 MEQ/L (136-145)
[2018-01-19] MEDS: ASPIRIN 81 MG ENTERIC TAB PO (20:09)
[2018-01-19] MEDS: ATORVASTATIN 10 MG TAB PO (20:09)
[2018-01-20] MEDS: LEVOTHYROXINE 50MCG TABLET (0.05MG) PO (05:35)
[2018-01-20] MEDS: MIRALAX *UNIT DOSE* 17GM PACKET PO (09:00)
[2018-01-20] MEDS: APIXABAN 5 MG TAB (ELIQUIS) PO (09:25)
[2018-01-20] MEDS: SENOKOT S TAB PO (09:25)
[2018-01-20] MEDS: AMIODARONE 200 MG TAB (PACERONE) PO (09:25)
[2018-01-20] MEDS: BISOPROLOL FUMARATE 5 MG TAB PO (09:29)
[2018-01-20] MEDS: LACTOBACILLUS ACIDOPHILUS CAP (BACID) PO (09:30)
[2018-01-20] MEDS: LINEZOLID 600MG TABLET (ZYVOX) PO (09:30)
== END 2018-01-20 11:15 | DRG 570 ==
LOC: M ED 10:34 → M ED INP 14:32 → M MSPAV 17:23
PROC: 0JBR0ZZ Excision of Left Foot Subcutaneous Tissue and Fascia, Open Approach (ICD-10-PCS; principal; 2018-01-11)
DX: L03.116 Cellulitis of left lower limb (principal); I50.33 Acute on chronic diastolic (congestive) heart failure; L02.612 Cutaneous abscess of left foot; N17.9 Acute kidney failure, unspecified; L97.528 Non-pressure chronic ulcer of other part of left foot with other specified severity; I11.0 Hypertensive heart disease with heart failure; E78.5 Hyperlipidemia, unspecified; E03.9 Hypothyroidism, unspecified; I70.292 Other atherosclerosis of native arteries of extremities, left leg; I27.20 Pulmonary hypertension, unspecified; I48.91 Unspecified atrial fibrillation; I34.0 Nonrheumatic mitral (valve) insufficiency; B95.61 Methicillin susceptible Staphylococcus aureus infection as the cause of diseases classified elsewhere; M19.011 Primary osteoarthritis, right shoulder; K59.00 Constipation, unspecified; R26.89 Other abnormalities of gait and mobility; Z95.0 Presence of cardiac pacemaker; Z79.01 Long term (current) use of anticoagulants; Z79.82 Long term (current) use of aspirin; Z79.899 Other long term (current) drug therapy; Z91.013 Allergy to seafood; Z96.651 Presence of right artificial knee joint; Z90.49 Acquired absence of other specified parts of digestive tract; Z90.710 Acquired absence of both cervix and uterus; Z87.891 Personal history of nicotine dependence

== ENCOUNTER → 2018-01-10 | Outpatient (REF) ==
[2018-01-10 12:04] LABS: HEMATOCRIT 39.5 % (36.0-47.0); HEMOGLOBIN 11.8 g/dl (12.0-15.5); MEAN CORPUSCULAR HEMOGLOBIN 29.3 pg (27.0-33.0); MEAN CORPUSCULAR HGB CONC 29.9 g/dl (32.0-36.5); PLATELET COUNT, AUTOMATED 131 10^3/uL (150-450); RED BLOOD COUNT 4.03 10^6/uL (4.00-5.40); WHITE BLOOD COUNT 5.7 10^3/uL (4.0-10.0)
[2018-01-10 12:25] LABS: ANION GAP 10 MEQ/L (8-16); BLOOD UREA NITROGEN 44 MG/DL (7-18); CARBON DIOXIDE LEVEL 29 MEQ/L (21-32); CHLORIDE LEVEL 103 MEQ/L (98-107); GLOMERULAR FILTRATION RATE 35.4 (>32); GLUCOSE, FASTING 204 MG/DL (70-100); POTASSIUM SERUM 3.9 MEQ/L (3.5-5.1); SODIUM LEVEL 142 MEQ/L (136-145)
== END ==
DX: E87.6 Hypokalemia (principal); R60.9 Edema, unspecified

== ENCOUNTER → 2018-01-24 | Outpatient (REF) | payer BC, MEDICARE, OTHER ==
[2018-01-24 10:10] LABS: HEMATOCRIT 32.4 % (36.0-47.0); HEMOGLOBIN 9.8 g/dl (12.0-15.5); MEAN CORPUSCULAR HEMOGLOBIN 28.7 pg (27.0-33.0); MEAN CORPUSCULAR HGB CONC 30.2 g/dl (32.0-36.5); MEAN CORPUSCULAR VOLUME 94.7 fl (80.0-96.0); RED BLOOD COUNT 3.42 10^6/uL (4.00-5.40); RED CELL DISTRIBUTION WIDTH 16.7 % (11.5-14.5); WHITE BLOOD COUNT 4.4 10^3/uL (4.0-10.0)
[2018-01-24 10:25] LABS: IMMATURE PLATELET FRACTION % 2.4 % (0.0-9.6); PLATELET COUNT, AUTOMATED 71 10^3/uL (150-450)
[2018-01-24 10:33] LABS: ANION GAP 11 MEQ/L (8-16); BLOOD UREA NITROGEN 40 MG/DL (7-18); CARBON DIOXIDE LEVEL 26 MEQ/L (21-32); CHLORIDE LEVEL 104 MEQ/L (98-107); GLOMERULAR FILTRATION RATE 32.9 (>32); GLUCOSE, FASTING 188 MG/DL (70-100); POTASSIUM SERUM 4.7 MEQ/L (3.5-5.1); SODIUM LEVEL 141 MEQ/L (136-145)
== END ==
DX: L03.116 Cellulitis of left lower limb (principal); I50.9 Heart failure, unspecified; E03.9 Hypothyroidism, unspecified

== ENCOUNTER → 2018-01-30 | Outpatient (REF) ==
[2018-01-30 12:23] LABS: HEMATOCRIT 28.3 % (36.0-47.0); HEMOGLOBIN 8.8 g/dl (12.0-15.5); MEAN CORPUSCULAR HEMOGLOBIN 29.1 pg (27.0-33.0); MEAN CORPUSCULAR HGB CONC 31.1 g/dl (32.0-36.5); MEAN CORPUSCULAR VOLUME 93.7 fl (80.0-96.0); RED BLOOD COUNT 3.02 10^6/uL (4.00-5.40); RED CELL DISTRIBUTION WIDTH 16.7 % (11.5-14.5); WHITE BLOOD COUNT 4.6 10^3/uL (4.0-10.0)
[2018-01-30 12:48] LABS: ANION GAP 10 MEQ/L (8-16); BLOOD UREA NITROGEN 48 MG/DL (7-18); CALCIUM LEVEL 8.1 MG/DL (8.8-10.2); CARBON DIOXIDE LEVEL 28 MEQ/L (21-32); CHLORIDE LEVEL 104 MEQ/L (98-107); CREATININE FOR GFR 1.65 MG/DL (0.55-1.30); GLOMERULAR FILTRATION RATE 31.7 (>32); GLUCOSE, FASTING 147 MG/DL (70-100); SODIUM LEVEL 142 MEQ/L (136-145)
[2018-01-30 13:38] LABS: PLATELET COUNT, AUTOMATED 43 10^3/uL (150-450)
[2018-01-30 13:41] LABS: IMMATURE PLATELET FRACTION % 5.9 % (0.0-9.6)
== END ==
DX: I50.9 Heart failure, unspecified (principal)

== ENCOUNTER → 2018-02-03 | Outpatient (REF) ==
[2018-02-03 12:54] LABS: HEMATOCRIT 25.5 % (36.0-47.0); MEAN CORPUSCULAR HGB CONC 31.4 g/dl (32.0-36.5); MEAN CORPUSCULAR VOLUME 92.4 fl (80.0-96.0); PLATELET COUNT, AUTOMATED 159 10^3/uL (150-450); RED BLOOD COUNT 2.76 10^6/uL (4.00-5.40); WHITE BLOOD COUNT 6.6 10^3/uL (4.0-10.0)
[2018-02-03 13:19] LABS: ANION GAP 9 MEQ/L (8-16); BLOOD UREA NITROGEN 44 MG/DL (7-18); CALCIUM LEVEL 7.9 MG/DL (8.8-10.2); CARBON DIOXIDE LEVEL 31 MEQ/L (21-32); CHLORIDE LEVEL 100 MEQ/L (98-107); CREATININE FOR GFR 1.65 MG/DL (0.55-1.30); GLOMERULAR FILTRATION RATE 31.7 (>32); GLUCOSE, FASTING 191 MG/DL (70-100); POTASSIUM SERUM 3.6 MEQ/L (3.5-5.1); SODIUM LEVEL 140 MEQ/L (136-145)
== END ==
DX: D64.9 Anemia, unspecified (principal); R11.0 Nausea

== ENCOUNTER → 2018-02-04 | Outpatient (REF) | payer MEDICARE, SELFPAY, BC, OTHER ==
[2018-02-04 13:30] LABS: HEMATOCRIT 25.6 % (36.0-47.0); HEMOGLOBIN 7.8 g/dl (12.0-15.5); MEAN CORPUSCULAR HEMOGLOBIN 28.9 pg (27.0-33.0); MEAN CORPUSCULAR HGB CONC 30.5 g/dl (32.0-36.5); MEAN CORPUSCULAR VOLUME 94.8 fl (80.0-96.0); PLATELET COUNT, AUTOMATED 186 10^3/uL (150-450); RED CELL DISTRIBUTION WIDTH 17.6 % (11.5-14.5); WHITE BLOOD COUNT 5.7 10^3/uL (4.0-10.0)
[2018-02-04 13:39] LABS: ANION GAP 11 MEQ/L (8-16); BLOOD UREA NITROGEN 46 MG/DL (7-18); CARBON DIOXIDE LEVEL 30 MEQ/L (21-32); CHLORIDE LEVEL 99 MEQ/L (98-107); CREATININE FOR GFR 1.62 MG/DL (0.55-1.30); GLOMERULAR FILTRATION RATE 32.4 (>32); GLUCOSE, FASTING 191 MG/DL (70-100); POTASSIUM SERUM 3.6 MEQ/L (3.5-5.1); SODIUM LEVEL 140 MEQ/L (136-145)
== END ==
LOC: M LAB REF 11:11
DX: D64.9 Anemia, unspecified (principal)
CPT/HCPCS: 80048

== ENCOUNTER 2018-02-06 10:53 | Outpatient (CLI) | payer MEDICARE, BC, OTHER ==
[2018-02-06] MEDS: ACETAMINOPHEN TAB 650MG DOSE (2X325MG) PO ×2 (13:46)
[2018-02-06] MEDS: diphenhydrAMINE 25 MG CAP PO ×2 (13:46)
[2018-02-06 13:56] LABS: IMMEDIATE SPIN CROSSMATCH 1 2
[2018-02-06] MEDS: TORSEMIDE 20 MG TAB PO ×2 (16:30)
== END 2018-02-06 20:45 | disposition home or self-care (01) ==
LOC: M OPCLI4PR 10:53 → M PED 11:05 → M OPCLI4PR 20:45
PROVIDERS: Pediatrics
DX: D64.9 Anemia, unspecified (principal); Z79.82 Long term (current) use of aspirin; Z79.899 Other long term (current) drug therapy
CPT/HCPCS: 36430

== ENCOUNTER → 2018-02-06 | Outpatient (REF) | DX: D64.9 Anemia, unspecified (principal) ==

== ENCOUNTER → 2018-02-07 | Outpatient (REF) | payer MEDICARE, BC, OTHER ==
[2018-02-07 09:52] LABS: HEMATOCRIT 33.3 % (36.0-47.0); HEMOGLOBIN 10.5 g/dl (12.0-15.5); MEAN CORPUSCULAR HEMOGLOBIN 28.9 pg (27.0-33.0); MEAN CORPUSCULAR HGB CONC 31.5 g/dl (32.0-36.5); MEAN CORPUSCULAR VOLUME 91.7 fl (80.0-96.0); PLATELET COUNT, AUTOMATED 193 10^3/uL (150-450); RED BLOOD COUNT 3.63 10^6/uL (4.00-5.40); RED CELL DISTRIBUTION WIDTH 19.4 % (11.5-14.5); WHITE BLOOD COUNT 5.5 10^3/uL (4.0-10.0)
[2018-02-07 10:14] LABS: ANION GAP 8 MEQ/L (8-16); BLOOD UREA NITROGEN 43 MG/DL (7-18); CALCIUM LEVEL 7.9 MG/DL (8.8-10.2); CARBON DIOXIDE LEVEL 34 MEQ/L (21-32); CHLORIDE LEVEL 99 MEQ/L (98-107); CREATININE FOR GFR 1.65 MG/DL (0.55-1.30); GLOMERULAR FILTRATION RATE 31.7 (>32); GLUCOSE, FASTING 177 MG/DL (70-100); POTASSIUM SERUM 3.2 MEQ/L (3.5-5.1); SODIUM LEVEL 141 MEQ/L (136-145)
== END ==
DX: D64.9 Anemia, unspecified (principal)
CPT/HCPCS: 80048

== ENCOUNTER → 2018-02-10 | Outpatient (REF) | DX: D64.9 Anemia, unspecified (principal) ==

== ENCOUNTER → 2018-02-14 | Outpatient (REF) ==
[2018-02-14 10:13] LABS: HEMATOCRIT 37.6 % (36.0-47.0); HEMOGLOBIN 11.4 g/dl (12.0-15.5); MEAN CORPUSCULAR HEMOGLOBIN 29.3 pg (27.0-33.0); MEAN CORPUSCULAR HGB CONC 30.3 g/dl (32.0-36.5); MEAN CORPUSCULAR VOLUME 96.7 fl (80.0-96.0); PLATELET COUNT, AUTOMATED 207 10^3/uL (150-450); RED BLOOD COUNT 3.89 10^6/uL (4.00-5.40); WHITE BLOOD COUNT 6.9 10^3/uL (4.0-10.0)
== END ==
DX: D64.9 Anemia, unspecified (principal)

== ENCOUNTER → 2018-02-15 | Outpatient (REF) ==
[2018-02-15 18:38] LABS: VITAMIN B12 LEVEL 716 PG/ML (247-911)
[2018-02-15 18:50] LABS: ALBUMIN/GLOBULIN RATIO 0.79 (1.00-1.93); ALKALINE PHOSPHATASE 129 U/L (45-117); ALT/SGPT 25 U/L (12-78); ANION GAP 11 MEQ/L (8-16); AST/SGOT 25 U/L (7-37); BILIRUBIN,TOTAL 1.8 MG/DL (0.2-1.0); BLOOD UREA NITROGEN 36 MG/DL (7-18); CALCIUM LEVEL 8.3 MG/DL (8.8-10.2); CARBON DIOXIDE LEVEL 29 MEQ/L (21-32); CHLORIDE LEVEL 98 MEQ/L (98-107); GLOMERULAR FILTRATION RATE 38.3 (>32); GLUCOSE, FASTING 180 MG/DL (70-100); SODIUM LEVEL 138 MEQ/L (136-145); TOTAL PROTEIN 6.8 GM/DL (6.4-8.2)
== END ==
DX: R41.0 Disorientation, unspecified (principal)

== ENCOUNTER → 2018-02-21 | Outpatient (REF) | payer BC, MEDICARE, OTHER ==
[2018-02-21 09:59] LABS: HEMOGLOBIN 11.4 g/dl (12.0-15.5); MEAN CORPUSCULAR HEMOGLOBIN 28.9 pg (27.0-33.0); MEAN CORPUSCULAR HGB CONC 30.8 g/dl (32.0-36.5); MEAN CORPUSCULAR VOLUME 93.7 fl (80.0-96.0); PLATELET COUNT, AUTOMATED 161 10^3/uL (150-450); RED BLOOD COUNT 3.95 10^6/uL (4.00-5.40); RED CELL DISTRIBUTION WIDTH 19.9 % (11.5-14.5); WHITE BLOOD COUNT 7.3 10^3/uL (4.0-10.0)
== END ==
DX: D64.9 Anemia, unspecified (principal)

== ENCOUNTER → 2018-02-24 | Outpatient (REF) | payer MEDICARE, BC, OTHER ==
[2018-02-24 10:43] LABS: HEMATOCRIT 38.7 % (36.0-47.0); HEMOGLOBIN 11.9 g/dl (12.0-15.5); MEAN CORPUSCULAR HEMOGLOBIN 29.4 pg (27.0-33.0); MEAN CORPUSCULAR HGB CONC 30.7 g/dl (32.0-36.5); MEAN CORPUSCULAR VOLUME 95.6 fl (80.0-96.0); PLATELET COUNT, AUTOMATED 152 10^3/uL (150-450); RED BLOOD COUNT 4.05 10^6/uL (4.00-5.40); WHITE BLOOD COUNT 7.7 10^3/uL (4.0-10.0)
[2018-02-24 11:19] LABS: ALBUMIN 2.9 GM/DL (3.2-5.2); ALBUMIN/GLOBULIN RATIO 0.69 (1.00-1.93); ALKALINE PHOSPHATASE 107 U/L (45-117); ALT/SGPT 27 U/L (12-78); ANION GAP 11 MEQ/L (8-16); AST/SGOT 28 U/L (7-37); BILIRUBIN,TOTAL 1.8 MG/DL (0.2-1.0); BLOOD UREA NITROGEN 32 MG/DL (7-18); CALCIUM LEVEL 8.2 MG/DL (8.8-10.2); CARBON DIOXIDE LEVEL 27 MEQ/L (21-32); CHLORIDE LEVEL 103 MEQ/L (98-107); CREATININE FOR GFR 1.35 MG/DL (0.55-1.30); GLUCOSE, FASTING 231 MG/DL (70-100); POTASSIUM SERUM 3.9 MEQ/L (3.5-5.1); SODIUM LEVEL 141 MEQ/L (136-145); TOTAL PROTEIN 7.1 GM/DL (6.4-8.2)
[2018-02-24 13:13] LABS: ESTIMATED AVERAGE GLUCOSE 163 MG/DL (60-110); HEMOGLOBIN A1c 7.3 %
== END ==
DX: R41.82 Altered mental status, unspecified (principal); Z79.899 Other long term (current) drug therapy
CPT/HCPCS: 80053

== ENCOUNTER → 2018-02-28 | Outpatient (REF) | payer MEDICARE, BC, OTHER ==
[2018-02-28 11:15] LABS: HEMOGLOBIN 11.6 g/dl (12.0-15.5); MEAN CORPUSCULAR HEMOGLOBIN 28.8 pg (27.0-33.0); MEAN CORPUSCULAR HGB CONC 29.7 g/dl (32.0-36.5); MEAN CORPUSCULAR VOLUME 96.8 fl (80.0-96.0); PLATELET COUNT, AUTOMATED 166 10^3/uL (150-450); RED BLOOD COUNT 4.03 10^6/uL (4.00-5.40); RED CELL DISTRIBUTION WIDTH 19.9 % (11.5-14.5); WHITE BLOOD COUNT 7.1 10^3/uL (4.0-10.0)
[2018-02-28 11:23] LABS: ANION GAP 9 MEQ/L (8-16); BLOOD UREA NITROGEN 39 MG/DL (7-18); CALCIUM LEVEL 8.6 MG/DL (8.8-10.2); CARBON DIOXIDE LEVEL 30 MEQ/L (21-32); CHLORIDE LEVEL 101 MEQ/L (98-107); CREATININE FOR GFR 1.41 MG/DL (0.55-1.30); GLUCOSE, FASTING 216 MG/DL (70-100); POTASSIUM SERUM 3.8 MEQ/L (3.5-5.1); SODIUM LEVEL 140 MEQ/L (136-145)
== END ==
DX: D64.9 Anemia, unspecified (principal)
CPT/HCPCS: 80048

== ENCOUNTER → 2018-03-14 | Outpatient (REF) | payer MEDICARE, BC, OTHER ==
[2018-03-14 14:42] LABS: HEMATOCRIT 40.3 % (36.0-47.0); HEMOGLOBIN 12.4 g/dl (12.0-15.5); MEAN CORPUSCULAR HEMOGLOBIN 28.9 pg (27.0-33.0); MEAN CORPUSCULAR HGB CONC 30.8 g/dl (32.0-36.5); MEAN CORPUSCULAR VOLUME 93.9 fl (80.0-96.0); PLATELET COUNT, AUTOMATED 192 10^3/uL (150-450); RED BLOOD COUNT 4.29 10^6/uL (4.00-5.40); WHITE BLOOD COUNT 9.4 10^3/uL (4.0-10.0)
[2018-03-14 15:00] LABS: ANION GAP 13 MEQ/L (8-16); BLOOD UREA NITROGEN 48 MG/DL (7-18); CALCIUM LEVEL 8.5 MG/DL (8.8-10.2); CARBON DIOXIDE LEVEL 26 MEQ/L (21-32); CHLORIDE LEVEL 99 MEQ/L (98-107); CREATININE FOR GFR 1.28 MG/DL (0.55-1.30); GLOMERULAR FILTRATION RATE 42.5 (>32); GLUCOSE, FASTING 210 MG/DL (70-100); POTASSIUM SERUM 3.4 MEQ/L (3.5-5.1); SODIUM LEVEL 138 MEQ/L (136-145)
== END ==
DX: I50.9 Heart failure, unspecified (principal); D64.9 Anemia, unspecified
CPT/HCPCS: 80048

== ENCOUNTER → 2018-03-21 | Outpatient (REF) | payer MEDICARE, BC, OTHER ==
[2018-03-21 13:24] LABS: HEMOGLOBIN 13.4 g/dl (12.0-15.5); MEAN CORPUSCULAR HEMOGLOBIN 28.8 pg (27.0-33.0); MEAN CORPUSCULAR HGB CONC 31.2 g/dl (32.0-36.5); MEAN CORPUSCULAR VOLUME 92.5 fl (80.0-96.0); PLATELET COUNT, AUTOMATED 199 10^3/uL (150-450); RED BLOOD COUNT 4.65 10^6/uL (4.00-5.40); RED CELL DISTRIBUTION WIDTH 18.9 % (11.5-14.5); WHITE BLOOD COUNT 7.6 10^3/uL (4.0-10.0)
[2018-03-21 13:30] LABS: ANION GAP 12 MEQ/L (8-16); BLOOD UREA NITROGEN 40 MG/DL (7-18); CALCIUM LEVEL 9.1 MG/DL (8.8-10.2); CARBON DIOXIDE LEVEL 29 MEQ/L (21-32); CHLORIDE LEVEL 99 MEQ/L (98-107); CREATININE FOR GFR 1.15 MG/DL (0.55-1.30); GLOMERULAR FILTRATION RATE 48.1 (>32); GLUCOSE, FASTING 173 MG/DL (70-100); POTASSIUM SERUM 3.8 MEQ/L (3.5-5.1); SODIUM LEVEL 140 MEQ/L (136-145)
== END ==
DX: D64.9 Anemia, unspecified (principal)
CPT/HCPCS: 80048

== ENCOUNTER 2018-03-28 11:57 | Outpatient (REF) ==
[2018-03-29 09:43] LABS: HEMATOCRIT 41.9 % (36.0-47.0); HEMOGLOBIN 13.1 g/dl (12.0-15.5); MEAN CORPUSCULAR HEMOGLOBIN 28.9 pg (27.0-33.0); MEAN CORPUSCULAR HGB CONC 31.3 g/dl (32.0-36.5); MEAN CORPUSCULAR VOLUME 92.3 fl (80.0-96.0); PLATELET COUNT, AUTOMATED 185 10^3/uL (150-450); RED BLOOD COUNT 4.54 10^6/uL (4.00-5.40); RED CELL DISTRIBUTION WIDTH 18.6 % (11.5-14.5); WHITE BLOOD COUNT 6.8 10^3/uL (4.0-10.0)
== END 2018-03-29 ==
DX: D64.9 Anemia, unspecified (principal)

== ENCOUNTER → 2018-03-28 | Outpatient (REF) ==
[~2018-03-28] MED LIST changes: -CHLORTHALIDONE 12.5MG PER 1/2 TABLET PO; -CHLORTHALIDONE 25 MG TAB PO; +HEPARIN 1,000 UNITS/ML 10ML VIAL (FOR RADIOLOGY& DIALYSIS ONLY) As Ordered; +ISOVUE-300 61% 50ML VIAL (Q9967) As Ordered; +LIDOCAINE 2% MDV 20 ML VIAL As Ordered; +MIDAZOLAM INJ 2 MG/2 ML VIAL (J2250) As Ordered; +fentaNYL 100 MCG/2 ML INJECTION (J3010) As Ordered
== END ==
LOC: M IRPRO 06:41
DX: Z00.00 Encounter for general adult medical examination without abnormal findings (principal)

== ENCOUNTER → 2018-04-04 | Outpatient (REF) | payer MEDICARE, BC, OTHER ==
[2018-04-04 10:35] LABS: HEMATOCRIT 43.1 % (36.0-47.0); HEMOGLOBIN 13.7 g/dl (12.0-15.5); MEAN CORPUSCULAR HEMOGLOBIN 28.8 pg (27.0-33.0); MEAN CORPUSCULAR HGB CONC 31.8 g/dl (32.0-36.5); MEAN CORPUSCULAR VOLUME 90.5 fl (80.0-96.0); PLATELET COUNT, AUTOMATED 208 10^3/uL (150-450); RED BLOOD COUNT 4.76 10^6/uL (4.00-5.40); RED CELL DISTRIBUTION WIDTH 18.6 % (11.5-14.5); WHITE BLOOD COUNT 6.7 10^3/uL (4.0-10.0)
[2018-04-04 11:20] LABS: ANION GAP 11 MEQ/L (8-16); BLOOD UREA NITROGEN 47 MG/DL (7-18); CALCIUM LEVEL 8.3 MG/DL (8.8-10.2); CARBON DIOXIDE LEVEL 30 MEQ/L (21-32); CHLORIDE LEVEL 97 MEQ/L (98-107); CREATININE FOR GFR 1.43 MG/DL (0.55-1.30); GLOMERULAR FILTRATION RATE 37.4 (>32); GLUCOSE, FASTING 180 MG/DL (70-100); POTASSIUM SERUM 3.1 MEQ/L (3.5-5.1); SODIUM LEVEL 138 MEQ/L (136-145)
== END ==
DX: D64.9 Anemia, unspecified (principal)
CPT/HCPCS: 84443

== ENCOUNTER → 2018-04-05 | Outpatient (REF) | payer MEDICARE, BC, OTHER ==
[2018-04-05 09:33] LABS: ANION GAP 9 MEQ/L (8-16); BLOOD UREA NITROGEN 48 MG/DL (7-18); CALCIUM LEVEL 8.8 MG/DL (8.8-10.2); CARBON DIOXIDE LEVEL 31 MEQ/L (21-32); CHLORIDE LEVEL 98 MEQ/L (98-107); CREATININE FOR GFR 1.28 MG/DL (0.55-1.30); GLOMERULAR FILTRATION RATE 42.5 (>32); GLUCOSE, FASTING 209 MG/DL (70-100); POTASSIUM SERUM 3.4 MEQ/L (3.5-5.1); SODIUM LEVEL 138 MEQ/L (136-145)
== END ==
DX: E87.6 Hypokalemia (principal)
CPT/HCPCS: 80048

== ENCOUNTER 2018-04-10 08:56 | Day surgery (SDC) | payer MEDICARE, BC, OTHER ==
[2018-04-10] MEDS: NS 1,000 ML IV (06:00)
[2018-04-10] MEDS ORDERED: LIDOCAINE 2% INJ 100 MG/5 ML SDV (FOR ANES.) As Ordered (11:09)
[2018-04-10] MEDS ORDERED: PROPOFOL 500 MG/50 ML VIAL As Ordered (11:09)
[2018-04-10] MEDS ORDERED: fentaNYL 100 MCG/2 ML INJECTION (J3010) As Ordered (11:09)
== END 2018-04-10 11:51 | disposition home or self-care (01) ==
LOC: M OPP 08:56
DX: K92.1 Melena (principal); K62.1 Rectal polyp; K62.89 Other specified diseases of anus and rectum; K63.89 Other specified diseases of intestine; K64.8 Other hemorrhoids; D62 Acute posthemorrhagic anemia; K29.70 Gastritis, unspecified, without bleeding; I11.0 Hypertensive heart disease with heart failure; Z95.0 Presence of cardiac pacemaker; E11.51 Type 2 diabetes mellitus with diabetic peripheral angiopathy without gangrene; E03.9 Hypothyroidism, unspecified; K21.9 Gastro-esophageal reflux disease without esophagitis; R12 Heartburn; I50.9 Heart failure, unspecified; I48.91 Unspecified atrial fibrillation; I73.9 Peripheral vascular disease, unspecified; M19.90 Unspecified osteoarthritis, unspecified site; M81.0 Age-related osteoporosis without current pathological fracture; H40.9 Unspecified glaucoma; R41.3 Other amnesia; R32 Unspecified urinary incontinence; Z96.652 Presence of left artificial knee joint; Z91.013 Allergy to seafood; Z79.82 Long term (current) use of aspirin; Z79.899 Other long term (current) drug therapy; Z79.84 Long term (current) use of oral hypoglycemic drugs
CPT/HCPCS: 45385

== ENCOUNTER → 2018-04-11 | Outpatient (REF) | payer MEDICARE, BC, OTHER ==
[2018-04-11 09:55] LABS: HEMATOCRIT 41.5 % (36.0-47.0); HEMOGLOBIN 13.1 g/dl (12.0-15.5); MEAN CORPUSCULAR HGB CONC 31.6 g/dl (32.0-36.5); MEAN CORPUSCULAR VOLUME 91.8 fl (80.0-96.0); PLATELET COUNT, AUTOMATED 175 10^3/uL (150-450); RED BLOOD COUNT 4.52 10^6/uL (4.00-5.40); RED CELL DISTRIBUTION WIDTH 18.7 % (11.5-14.5); WHITE BLOOD COUNT 5.4 10^3/uL (4.0-10.0)
[2018-04-11 10:37] LABS: ANION GAP 9 MEQ/L (8-16); BLOOD UREA NITROGEN 30 MG/DL (7-18); CALCIUM LEVEL 8.3 MG/DL (8.8-10.2); CARBON DIOXIDE LEVEL 30 MEQ/L (21-32); CHLORIDE LEVEL 103 MEQ/L (98-107); CREATININE FOR GFR 1.08 MG/DL (0.55-1.30); GLOMERULAR FILTRATION RATE 51.7 (>32); GLUCOSE, FASTING 176 MG/DL (70-100); SODIUM LEVEL 142 MEQ/L (136-145)
== END ==
DX: E03.9 Hypothyroidism, unspecified (principal)
CPT/HCPCS: 84443

== ENCOUNTER → 2018-04-18 | Outpatient (REF) | payer MEDICARE, BC, OTHER ==
[2018-04-18 10:22] LABS: HEMATOCRIT 41.8 % (36.0-47.0); HEMOGLOBIN 12.7 g/dl (12.0-15.5); MEAN CORPUSCULAR HEMOGLOBIN 29.5 pg (27.0-33.0); MEAN CORPUSCULAR HGB CONC 30.4 g/dl (32.0-36.5); PLATELET COUNT, AUTOMATED 166 10^3/uL (150-450); RED BLOOD COUNT 4.31 10^6/uL (4.00-5.40); RED CELL DISTRIBUTION WIDTH 19.1 % (11.5-14.5); WHITE BLOOD COUNT 7.1 10^3/uL (4.0-10.0)
[2018-04-18 10:43] LABS: ANION GAP 8 MEQ/L (8-16); BLOOD UREA NITROGEN 40 MG/DL (7-18); CALCIUM LEVEL 8.8 MG/DL (8.8-10.2); CARBON DIOXIDE LEVEL 32 MEQ/L (21-32); CHLORIDE LEVEL 99 MEQ/L (98-107); CREATININE FOR GFR 1.24 MG/DL (0.55-1.30); GLOMERULAR FILTRATION RATE 44.1 (>32); GLUCOSE, FASTING 280 MG/DL (70-100); POTASSIUM SERUM 4.4 MEQ/L (3.5-5.1); SODIUM LEVEL 139 MEQ/L (136-145)
== END ==
DX: A04.71 Enterocolitis due to Clostridium difficile, recurrent (principal); Z79.899 Other long term (current) drug therapy
CPT/HCPCS: 80048

== ENCOUNTER → 2018-04-25 | Outpatient (REF) | payer MEDICARE, BC, OTHER ==
[2018-04-25 10:41] LABS: HEMATOCRIT 39.3 % (36.0-47.0); HEMOGLOBIN 12.5 g/dl (12.0-15.5); MEAN CORPUSCULAR HEMOGLOBIN 29.8 pg (27.0-33.0); MEAN CORPUSCULAR HGB CONC 31.8 g/dl (32.0-36.5); MEAN CORPUSCULAR VOLUME 93.8 fl (80.0-96.0); PLATELET COUNT, AUTOMATED 191 10^3/uL (150-450); RED BLOOD COUNT 4.19 10^6/uL (4.00-5.40); RED CELL DISTRIBUTION WIDTH 19.4 % (11.5-14.5); WHITE BLOOD COUNT 5.5 10^3/uL (4.0-10.0)
[2018-04-25 11:00] LABS: ANION GAP 11 MEQ/L (8-16); BLOOD UREA NITROGEN 37 MG/DL (7-18); CALCIUM LEVEL 8.9 MG/DL (8.8-10.2); CARBON DIOXIDE LEVEL 30 MEQ/L (21-32); CHLORIDE LEVEL 96 MEQ/L (98-107); CREATININE FOR GFR 1.05 MG/DL (0.55-1.30); GLOMERULAR FILTRATION RATE 53.4 (>32); GLUCOSE, FASTING 153 MG/DL (70-100); POTASSIUM SERUM 3.2 MEQ/L (3.5-5.1); SODIUM LEVEL 137 MEQ/L (136-145)
== END ==
DX: I50.9 Heart failure, unspecified (principal)
CPT/HCPCS: 80048

== ENCOUNTER → 2018-04-26 | Outpatient (REF) | payer MEDICARE, BC, OTHER | DX: I50.9 Heart failure, unspecified (principal) ==

== ENCOUNTER → 2018-04-26 | Outpatient (REF) | payer MEDICARE, BC, OTHER ==
[2018-04-27 09:21] LABS: ANION GAP 8 MEQ/L (8-16); BLOOD UREA NITROGEN 32 MG/DL (7-18); CALCIUM LEVEL 8.9 MG/DL (8.8-10.2); CARBON DIOXIDE LEVEL 29 MEQ/L (21-32); CHLORIDE LEVEL 100 MEQ/L (98-107); CREATININE FOR GFR 0.96 MG/DL (0.55-1.30); GLOMERULAR FILTRATION RATE 59.2 (>32); GLUCOSE, FASTING 165 MG/DL (70-100); POTASSIUM SERUM 4.2 MEQ/L (3.5-5.1); SODIUM LEVEL 137 MEQ/L (136-145)
== END ==
DX: E03.9 Hypothyroidism, unspecified (principal)
CPT/HCPCS: 80048

== ENCOUNTER → 2018-05-02 | Outpatient (REF) | payer MEDICARE, BC, OTHER ==
[2018-05-02 10:07] LABS: HEMATOCRIT 39.1 % (36.0-47.0); HEMOGLOBIN 11.8 g/dl (12.0-15.5); MEAN CORPUSCULAR HEMOGLOBIN 29.9 pg (27.0-33.0); MEAN CORPUSCULAR HGB CONC 30.2 g/dl (32.0-36.5); PLATELET COUNT, AUTOMATED 188 10^3/uL (150-450); RED BLOOD COUNT 3.95 10^6/uL (4.00-5.40); RED CELL DISTRIBUTION WIDTH 19.6 % (11.5-14.5); WHITE BLOOD COUNT 7.2 10^3/uL (4.0-10.0)
[2018-05-02 10:45] LABS: ANION GAP 8 MEQ/L (8-16); BLOOD UREA NITROGEN 33 MG/DL (7-18); CALCIUM LEVEL 8.7 MG/DL (8.8-10.2); CARBON DIOXIDE LEVEL 27 MEQ/L (21-32); CHLORIDE LEVEL 104 MEQ/L (98-107); CREATININE FOR GFR 1.19 MG/DL (0.55-1.30); GLOMERULAR FILTRATION RATE 46.2 (>32); GLUCOSE, FASTING 219 MG/DL (70-100); POTASSIUM SERUM 5.3 MEQ/L (3.5-5.1); SODIUM LEVEL 139 MEQ/L (136-145)
== END ==
DX: I50.9 Heart failure, unspecified (principal); A04.71 Enterocolitis due to Clostridium difficile, recurrent
CPT/HCPCS: 80048

== ENCOUNTER → 2018-05-04 | Outpatient (REF) | payer MEDICARE, BC, OTHER ==
[2018-05-04 12:13] LABS: ANION GAP 9 MEQ/L (8-16); BLOOD UREA NITROGEN 33 MG/DL (7-18); CALCIUM LEVEL 8.5 MG/DL (8.8-10.2); CARBON DIOXIDE LEVEL 28 MEQ/L (21-32); CHLORIDE LEVEL 99 MEQ/L (98-107); CREATININE FOR GFR 1.11 MG/DL (0.55-1.30); GLOMERULAR FILTRATION RATE 50.1 (>32); GLUCOSE, FASTING 138 MG/DL (70-100); POTASSIUM SERUM 4.4 MEQ/L (3.5-5.1); SODIUM LEVEL 136 MEQ/L (136-145)
== END ==
DX: E87.5 Hyperkalemia (principal)
CPT/HCPCS: 80048

== ENCOUNTER → 2018-05-09 | Outpatient (REF) | payer MEDICARE, BC, OTHER ==
[2018-05-09 12:00] LABS: HEMATOCRIT 36.9 % (36.0-47.0); HEMOGLOBIN 11.3 g/dl (12.0-15.5); MEAN CORPUSCULAR HEMOGLOBIN 29.1 pg (27.0-33.0); MEAN CORPUSCULAR HGB CONC 30.6 g/dl (32.0-36.5); MEAN CORPUSCULAR VOLUME 95.1 fl (80.0-96.0); PLATELET COUNT, AUTOMATED 176 10^3/uL (150-450); RED BLOOD COUNT 3.88 10^6/uL (4.00-5.40); RED CELL DISTRIBUTION WIDTH 18.6 % (11.5-14.5); WHITE BLOOD COUNT 5.9 10^3/uL (4.0-10.0)
[2018-05-09 12:31] LABS: ANION GAP 10 MEQ/L (8-16); BLOOD UREA NITROGEN 37 MG/DL (7-18); CALCIUM LEVEL 8.4 MG/DL (8.8-10.2); CARBON DIOXIDE LEVEL 27 MEQ/L (21-32); CHLORIDE LEVEL 101 MEQ/L (98-107); CREATININE FOR GFR 1.25 MG/DL (0.55-1.30); GLOMERULAR FILTRATION RATE 43.7 (>32); GLUCOSE, FASTING 259 MG/DL (70-100); POTASSIUM SERUM 3.8 MEQ/L (3.5-5.1); SODIUM LEVEL 138 MEQ/L (136-145)
== END ==
DX: I50.9 Heart failure, unspecified (principal); A04.71 Enterocolitis due to Clostridium difficile, recurrent
CPT/HCPCS: 80048

== ENCOUNTER → 2018-05-16 | Outpatient (REF) | payer MEDICARE, BC, OTHER ==
[2018-05-16 10:56] LABS: ANION GAP 8 MEQ/L (8-16); BLOOD UREA NITROGEN 42 MG/DL (7-18); CALCIUM LEVEL 9.2 MG/DL (8.8-10.2); CARBON DIOXIDE LEVEL 30 MEQ/L (21-32); CHLORIDE LEVEL 100 MEQ/L (98-107); CREATININE FOR GFR 1.28 MG/DL (0.55-1.30); GLOMERULAR FILTRATION RATE 42.5 (>32); GLUCOSE, FASTING 264 MG/DL (70-100); POTASSIUM SERUM 4.5 MEQ/L (3.5-5.1); SODIUM LEVEL 138 MEQ/L (136-145)
== END ==
DX: I50.9 Heart failure, unspecified (principal)
CPT/HCPCS: 80048

== ENCOUNTER → 2018-05-23 | Outpatient (REF) | payer MEDICARE, BC, OTHER ==
[2018-05-23 09:43] LABS: HEMATOCRIT 38.6 % (36.0-47.0); HEMOGLOBIN 11.9 g/dl (12.0-15.5); MEAN CORPUSCULAR HEMOGLOBIN 29.3 pg (27.0-33.0); MEAN CORPUSCULAR HGB CONC 30.8 g/dl (32.0-36.5); MEAN CORPUSCULAR VOLUME 95.1 fl (80.0-96.0); PLATELET COUNT, AUTOMATED 153 10^3/uL (150-450); RED BLOOD COUNT 4.06 10^6/uL (4.00-5.40); RED CELL DISTRIBUTION WIDTH 17.2 % (11.5-14.5); WHITE BLOOD COUNT 5.5 10^3/uL (4.0-10.0)
== END ==
DX: D64.9 Anemia, unspecified (principal)
CPT/HCPCS: 85027

== ENCOUNTER → 2018-05-30 | Outpatient (REF) | payer MEDICARE, BC, OTHER ==
[2018-05-30 10:04] LABS: HEMATOCRIT 37.2 % (36.0-47.0); HEMOGLOBIN 11.4 g/dl (12.0-15.5); MEAN CORPUSCULAR HEMOGLOBIN 28.6 pg (27.0-33.0); MEAN CORPUSCULAR HGB CONC 30.6 g/dl (32.0-36.5); MEAN CORPUSCULAR VOLUME 93.5 fl (80.0-96.0); PLATELET COUNT, AUTOMATED 133 10^3/uL (150-450); RED BLOOD COUNT 3.98 10^6/uL (4.00-5.40); RED CELL DISTRIBUTION WIDTH 16.9 % (11.5-14.5); WHITE BLOOD COUNT 5.9 10^3/uL (4.0-10.0)
== END ==
DX: D64.9 Anemia, unspecified (principal)
CPT/HCPCS: 85027

== ENCOUNTER → 2018-06-06 | Outpatient (REF) | payer MEDICARE, BC, OTHER ==
[2018-06-06 10:11] LABS: HEMOGLOBIN 12.6 g/dl (12.0-15.5); MEAN CORPUSCULAR HEMOGLOBIN 28.9 pg (27.0-33.0); MEAN CORPUSCULAR HGB CONC 30.7 g/dl (32.0-36.5); PLATELET COUNT, AUTOMATED 167 10^3/uL (150-450); RED BLOOD COUNT 4.36 10^6/uL (4.00-5.40); RED CELL DISTRIBUTION WIDTH 16.7 % (11.5-14.5); WHITE BLOOD COUNT 5.8 10^3/uL (4.0-10.0)
[2018-06-06 10:40] LABS: ANION GAP 9 MEQ/L (8-16); BLOOD UREA NITROGEN 37 MG/DL (7-18); CALCIUM LEVEL 8.9 MG/DL (8.8-10.2); CARBON DIOXIDE LEVEL 29 MEQ/L (21-32); CHLORIDE LEVEL 100 MEQ/L (98-107); CREATININE FOR GFR 1.27 MG/DL (0.55-1.30); GLOMERULAR FILTRATION RATE 42.9 (>32); GLUCOSE, FASTING 174 MG/DL (70-100); POTASSIUM SERUM 3.8 MEQ/L (3.5-5.1); SODIUM LEVEL 138 MEQ/L (136-145)
== END ==
DX: D64.9 Anemia, unspecified (principal)
CPT/HCPCS: 80048

== ENCOUNTER → 2018-06-13 | Outpatient (REF) | payer MEDICARE, BC, OTHER ==
[~2018-06-13] MED LIST changes: +AMIO200T PO; +ASPI1TAB PO; +ATOR1TAB19 PO; +BISO5TAB5 PO; +CALTTAB6 PO; +CAND32TA9 PO; +CARA1TAB6 PO; +CEFT1INJ3 INJ; +CHLO25TA PO; +COSO1SOL2 OU; +DEMA20TA6 PO; +DULC10SU2 PR; +ELIQ5TAB PO; +ENEM1ENE4 PR; +GLIP5TAB8 PO; -HEPARIN 1,000 UNITS/ML 10ML VIAL (FOR RADIOLOGY& DIALYSIS ONLY) As Ordered; -ISOVUE-300 61% 50ML VIAL (Q9967) As Ordered; +KLOR20TA42 PO; +LEVO50TA5 PO; -LIDOCAINE 2% MDV 20 ML VIAL As Ordered; +LINE600T PO; +LINE60TAB PO; +METO25TA PO; -MIDAZOLAM INJ 2 MG/2 ML VIAL (J2250) As Ordered; +MILK12002 PO; +PROTPAK PO; +SENN1TAB2 PO; +SILV50CR TOP; +TORS20TA2 PO; +TYLE325T5 PO; +VITA-122 PO; +VITMTA PO; +ZIOPTAN OU; -fentaNYL 100 MCG/2 ML INJECTION (J3010) As Ordered
[2018-06-13 09:39] LABS: HEMATOCRIT 36.6 % (36.0-47.0); HEMOGLOBIN 11.2 g/dl (12.0-15.5); MEAN CORPUSCULAR HEMOGLOBIN 28.2 pg (27.0-33.0); MEAN CORPUSCULAR HGB CONC 30.6 g/dl (32.0-36.5); MEAN CORPUSCULAR VOLUME 92.2 fl (80.0-96.0); PLATELET COUNT, AUTOMATED 116 10^3/uL (150-450); RED BLOOD COUNT 3.97 10^6/uL (4.00-5.40); WHITE BLOOD COUNT 5.5 10^3/uL (4.0-10.0)
== END ==
PROVIDERS: ATTEND Internal Medicine
DX: D64.9 Anemia, unspecified (principal)

== ENCOUNTER → 2018-06-13 | Outpatient (REF) | payer BC, MEDICARE, OTHER | DX: D64.9 Anemia, unspecified (principal); I50.9 Heart failure, unspecified ==

== ENCOUNTER → 2018-06-28 | Outpatient (REF) | payer MEDICARE, BC, OTHER ==
[2018-06-28 11:35] LABS: HEMATOCRIT 36.7 % (36.0-47.0); MEAN CORPUSCULAR VOLUME 90.2 fl (80.0-96.0); PLATELET COUNT, AUTOMATED 133 10^3/uL (150-450); RED BLOOD COUNT 4.07 10^6/uL (4.00-5.40); WHITE BLOOD COUNT 6.8 10^3/uL (4.0-10.0)
== END ==
PROVIDERS: ATTEND Internal Medicine
DX: D64.9 Anemia, unspecified (principal)

== ENCOUNTER → 2018-07-04 | Outpatient (REF) | payer MEDICARE, BC, OTHER ==
[~2018-07-04] MED LIST changes: -LINE600T PO; +LINE600T11 PO; +MILK120011 PO; -MILK12002 PO
[2018-07-04 10:01] LABS: HEMATOCRIT 37.4 % (36.0-47.0); HEMOGLOBIN 11.3 g/dl (12.0-15.5); MEAN CORPUSCULAR HGB CONC 30.2 g/dl (32.0-36.5); MEAN CORPUSCULAR VOLUME 89.3 fl (80.0-96.0); PLATELET COUNT, AUTOMATED 144 10^3/uL (150-450); RED BLOOD COUNT 4.19 10^6/uL (4.00-5.40); WHITE BLOOD COUNT 5.7 10^3/uL (4.0-10.0)
== END ==
PROVIDERS: ATTEND Internal Medicine
DX: D64.9 Anemia, unspecified (principal)

== ENCOUNTER → 2018-07-10 | Outpatient (REF) | payer MEDICARE, BC, OTHER ==
[2018-07-10 17:46] LABS: BASO % 0.8 % (0.0-1.0); EOS % 0.6 % (0.0-3.0); HEMATOCRIT 37.1 % (36.0-47.0); LYMPH # 0.6 10^3/uL (1.5-4.5); LYMPH % 11.7 % (24.0-44.0); MEAN CORPUSCULAR HGB CONC 29.6 g/dl (32.0-36.5); MEAN CORPUSCULAR VOLUME 91.2 fl (80.0-96.0); MONO # 0.6 10^3/uL (0.0-0.8); MONO % 12.1 % (0.0-5.0); NEUTROPHILS # 3.6 10^3/uL (1.8-7.7); NEUTROPHILS % 74.4 % (36.0-66.0); PLATELET COUNT, AUTOMATED 123 10^3/uL (150-450); RED BLOOD COUNT 4.07 10^6/uL (4.00-5.40); WHITE BLOOD COUNT 4.9 10^3/uL (4.0-10.0)
[2018-07-10 17:54] LABS: ALBUMIN 2.9 GM/DL (3.2-5.2); BILIRUBIN,TOTAL 1.5 MG/DL (0.2-1.0); CALCIUM LEVEL 8.4 MG/DL (8.8-10.2); CREATININE FOR GFR 1.37 MG/DL (0.55-1.30); GLOMERULAR FILTRATION RATE 39.2 (>32); POTASSIUM SERUM 4.7 MEQ/L (3.5-5.1); THYROID STIMULATING HORMONE 15.8 uIU/ML (0.358-3.740); TOTAL PROTEIN 6.8 GM/DL (6.4-8.2)
== END ==
PROVIDERS: ATTEND Internal Medicine
DX: R41.82 Altered mental status, unspecified (principal)

== ENCOUNTER → 2018-07-18 | Outpatient (REF) ==
[2018-07-18 09:10] LABS: HEMATOCRIT 39.6 % (36.0-47.0); HEMOGLOBIN 11.7 g/dl (12.0-15.5); MEAN CORPUSCULAR HEMOGLOBIN 26.8 pg (27.0-33.0); MEAN CORPUSCULAR HGB CONC 29.5 g/dl (32.0-36.5); MEAN CORPUSCULAR VOLUME 90.6 fl (80.0-96.0); PLATELET COUNT, AUTOMATED 148 10^3/uL (150-450); RED BLOOD COUNT 4.37 10^6/uL (4.00-5.40); WHITE BLOOD COUNT 4.9 10^3/uL (4.0-10.0)
== END ==
PROVIDERS: ATTEND Internal Medicine
DX: I50.9 Heart failure, unspecified (principal)

== ENCOUNTER → 2018-07-21 | Outpatient (REF) | payer MEDICARE, BC, OTHER ==
[2018-07-21 16:42] LABS: HEMOGLOBIN 11.8 g/dl (12.0-15.5); MEAN CORPUSCULAR HEMOGLOBIN 26.8 pg (27.0-33.0); MEAN CORPUSCULAR HGB CONC 29.5 g/dl (32.0-36.5); MEAN CORPUSCULAR VOLUME 90.9 fl (80.0-96.0); PLATELET COUNT, AUTOMATED 131 10^3/uL (150-450); WHITE BLOOD COUNT 4.9 10^3/uL (4.0-10.0)
[2018-07-21 17:30] LABS: CALCIUM LEVEL 8.1 MG/DL (8.8-10.2); CREATININE FOR GFR 1.45 MG/DL (0.55-1.30); GLOMERULAR FILTRATION RATE 36.7 (>32); POTASSIUM SERUM 4.3 MEQ/L (3.5-5.1); THYROID STIMULATING HORMONE 10.8 uIU/ML (0.358-3.740)
== END ==
PROVIDERS: ATTEND Internal Medicine
DX: R53.83 Other fatigue (principal)

== ENCOUNTER → 2018-07-25 | Outpatient (REF) ==
[2018-07-25 10:23] LABS: HEMOGLOBIN 11.7 g/dl (12.0-15.5); MEAN CORPUSCULAR HEMOGLOBIN 26.2 pg (27.0-33.0); MEAN CORPUSCULAR VOLUME 87.4 fl (80.0-96.0); PLATELET COUNT, AUTOMATED 139 10^3/uL (150-450); RED BLOOD COUNT 4.46 10^6/uL (4.00-5.40); WHITE BLOOD COUNT 5.5 10^3/uL (4.0-10.0)
== END ==
PROVIDERS: ATTEND Internal Medicine
DX: D64.9 Anemia, unspecified (principal)

== ENCOUNTER 2018-07-28 16:20 | Emergency (ER) | payer MEDICARE, BC, OTHER ==
[~2018-07-28] VITALS: Ht 162.6 cm; Wt 86.4 kg
[2018-07-28 16:21] VITALS: BP 138/66
[2018-07-28] MEDS ORDERED: ACETAMINOPHEN TAB 650MG DOSE (2X325MG) PO ONE (18:30)
--- NOTE | 2018-07-28 19:01 | REP ---
Clinical: Trauma. Technique: Axial noncontrast images through the left shoulder with coronal and sagittal re-formations. Comparison: 01/11/2018. Findings: Severe, advanced osteoarthritic degenerative changes are appreciated including flattening of the humeral head and underlying glenoid with subchondral heterogeneity and cystic changes, extensive osteophytosis, glenohumeral joint space narrowing and calcified intra-articular loose bodies as well as large effusion. The humeral head appears mildly anteriorly and superiorly subluxed in relation to the glenoid with loss of the subacromial space. No acute fracture is identified. Impression: 1. Severe, advanced osteoarthritic degenerative changes as described above including mild chronic anterior glenohumeral joint subluxation. 2. No acute fracture. Electronically Signed by Chuck Goldstein MD 07/28/2018 06:52 P
--- NOTE | 2018-07-28 19:46 | REP ---
Clinical: Pain with recent trauma. Technique: AP, lateral, oblique views of the left elbow. Findings: Examination is limited by positioning. No obvious acute fracture dislocation identified. Anterior and posterior fat pads are in seemingly normal position. Peripheral vascular disease noted. Impression: No obvious acute fracture or dislocation. Electronically Signed by Chuck Goldstein MD 07/28/2018 07:37 P
== END 2018-07-28 19:31 | disposition home or self-care (01) ==
LOC: M ED 16:20
DX: S40.012A Contusion of left shoulder, initial encounter (principal); M19.012 Primary osteoarthritis, left shoulder; I48.91 Unspecified atrial fibrillation; I11.0 Hypertensive heart disease with heart failure; I50.9 Heart failure, unspecified; I73.9 Peripheral vascular disease, unspecified; E03.9 Hypothyroidism, unspecified; R26.81 Unsteadiness on feet; Z91.013 Allergy to seafood; Z79.899 Other long term (current) drug therapy; Z79.82 Long term (current) use of aspirin

== ENCOUNTER → 2018-07-28 | Outpatient (REF) | payer MEDICARE, BC, OTHER ==
--- NOTE | 2018-07-28 12:38 | REP ---
Right foot: Two views. History: Right foot and ankle pain after fall. Findings: AP and lateral views of the right foot demonstrate vascular calcification. There is prominent plantar and mild Achilles calcaneal spurring. There is a fairly advanced diffuse osteopenia. 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 A advanced hallux valgus deformity is seen. There is osteoarthritis at the first MTP joint. No fractures seen however. No traumatic subluxation is seen. Mild soft tissue swelling of the forefoot. Impression: No fracture noted. Electronically Signed by Bret Quiroz MD 07/28/2018 12:29 P
--- NOTE | 2018-07-28 12:39 | REP ---
Right ankle series: Two views. History : Right foot and ankle pain after a fall. Findings: There is diffuse soft tissue swelling of the distal calf, particularly laterally. Plantar heel spurring is noted. Vascular calcifications noted. The ankle mortise appears intact. Diffuse osteopenia is noted. No fractures seen. Impression: No fracture noted. Electronically Signed by Bret Quiroz MD 07/28/2018 12:30 P
--- NOTE | 2018-07-28 12:39 | REP ---
Clinical: Pain with trauma. Technique: Portable AP view of the right and left shoulder. Comparison: 01/11/2018. Findings: Advanced osteoarthritic degenerative changes are appreciated involving the bilateral shoulders. Underlying injury including fracture cannot be excluded along with possible left shoulder dislocation. Impression: 1. Limited by technique and advanced bilateral osteoarthritic degenerative changes. 2. Subtle acute injury of either shoulder as well as left shoulder dislocation cannot be excluded. Electronically Signed by Chuck Goldstein MD 07/28/2018 12:30 P
[2018-07-28 14:09] LABS: HEMATOCRIT 36.8 % (36.0-47.0); HEMOGLOBIN 11.1 g/dl (12.0-15.5); MEAN CORPUSCULAR HEMOGLOBIN 26.4 pg (27.0-33.0); MEAN CORPUSCULAR HGB CONC 30.2 g/dl (32.0-36.5); MEAN CORPUSCULAR VOLUME 87.6 fl (80.0-96.0); PLATELET COUNT, AUTOMATED 125 10^3/uL (150-450); WHITE BLOOD COUNT 4.8 10^3/uL (4.0-10.0)
[2018-07-28 14:21] LABS: BILIRUBIN,TOTAL 1.6 MG/DL (0.2-1.0); CALCIUM LEVEL 8.4 MG/DL (8.8-10.2); CREATININE FOR GFR 1.34 MG/DL (0.55-1.30); GLOMERULAR FILTRATION RATE 40.2 (>32); POTASSIUM SERUM 4.3 MEQ/L (3.5-5.1); TOTAL PROTEIN 6.9 GM/DL (6.4-8.2)
== END ==
PROVIDERS: ATTEND Internal Medicine
DX: M25.511 Pain in right shoulder (principal); M25.512 Pain in left shoulder; M25.571 Pain in right ankle and joints of right foot; W19.XXXA Unspecified fall, initial encounter

== ENCOUNTER → 2018-07-28 | Outpatient (REF) | payer MEDICARE, BC, OTHER ==
--- NOTE | 2018-07-28 16:25 | REP ---
Clinical: Left shoulder pain. Technique: Internal rotation, external rotation, and Y view of the left shoulder. Findings: Advanced arthritic changes are appreciated. In comparison with prior examination there is a widening of the subacromial space and Y view suggests anterior dislocation. Subtle underlying acute fracture/injury cannot definitively be excluded. Impression: Advanced degenerative changes with findings to suggest acute anterior glenohumeral joint dislocation. Electronically Signed by Chuck Goldstein MD 07/28/2018 04:17 P
== END ==
PROVIDERS: ATTEND Physician Assistant
DX: M25.511 Pain in right shoulder (principal); M25.512 Pain in left shoulder

== ENCOUNTER → 2018-07-28 | Outpatient (CLI) | payer MEDICARE, BC, OTHER | LOC: M RAD 15:49 | PROVIDERS: ATTEND Internal Medicine | DX: S49.92XA Unspecified injury of left shoulder and upper arm, initial encounter (principal); Z53.8 Procedure and treatment not carried out for other reasons ==

== ENCOUNTER → 2018-08-01 | Outpatient (REF) | payer MEDICARE, BC, OTHER ==
[2018-08-01 10:21] LABS: HEMATOCRIT 35.7 % (36.0-47.0); HEMOGLOBIN 10.7 g/dl (12.0-15.5); MEAN CORPUSCULAR HEMOGLOBIN 26.4 pg (27.0-33.0); MEAN CORPUSCULAR VOLUME 88.1 fl (80.0-96.0); PLATELET COUNT, AUTOMATED 106 10^3/uL (150-450); RED BLOOD COUNT 4.05 10^6/uL (4.00-5.40); WHITE BLOOD COUNT 4.6 10^3/uL (4.0-10.0)
== END ==
PROVIDERS: ATTEND Internal Medicine
DX: E03.9 Hypothyroidism, unspecified (principal)

== ENCOUNTER → 2018-08-08 | Outpatient (REF) | payer MEDICARE, BC, OTHER ==
[2018-08-08 09:58] LABS: HEMATOCRIT 37.7 % (36.0-47.0); HEMOGLOBIN 11.2 g/dl (12.0-15.5); MEAN CORPUSCULAR HEMOGLOBIN 25.9 pg (27.0-33.0); MEAN CORPUSCULAR HGB CONC 29.7 g/dl (32.0-36.5); MEAN CORPUSCULAR VOLUME 87.1 fl (80.0-96.0); PLATELET COUNT, AUTOMATED 120 10^3/uL (150-450); RED BLOOD COUNT 4.33 10^6/uL (4.00-5.40); WHITE BLOOD COUNT 4.5 10^3/uL (4.0-10.0)
[2018-08-08 10:26] LABS: CALCIUM LEVEL 8.5 MG/DL (8.8-10.2); CREATININE FOR GFR 1.4 MG/DL (0.55-1.30); GLOMERULAR FILTRATION RATE 38.2 (>32); POTASSIUM SERUM 4.1 MEQ/L (3.5-5.1)
== END ==
PROVIDERS: ATTEND Internal Medicine
DX: I50.9 Heart failure, unspecified (principal)

== ENCOUNTER → 2018-08-22 | Outpatient (REF) | payer MEDICARE, BC, OTHER | PROVIDERS: ATTEND Internal Medicine | DX: E03.9 Hypothyroidism, unspecified (principal) ==

== ENCOUNTER → 2018-09-05 | Outpatient (REF) | payer MEDICARE, BC, OTHER ==
[2018-09-05 10:36] LABS: HEMATOCRIT 37.1 % (36.0-47.0); HEMOGLOBIN 10.8 g/dl (12.0-15.5); MEAN CORPUSCULAR HGB CONC 29.1 g/dl (32.0-36.5); MEAN CORPUSCULAR VOLUME 85.9 fl (80.0-96.0); PLATELET COUNT, AUTOMATED 114 10^3/uL (150-450); RED BLOOD COUNT 4.32 10^6/uL (4.00-5.40); WHITE BLOOD COUNT 4.3 10^3/uL (4.0-10.0)
[2018-09-05 10:51] LABS: CALCIUM LEVEL 8.4 MG/DL (8.8-10.2); CREATININE FOR GFR 1.31 MG/DL (0.55-1.30); GLOMERULAR FILTRATION RATE 41.3 (>32); POTASSIUM SERUM 4.4 MEQ/L (3.5-5.1)
== END ==
PROVIDERS: ATTEND Internal Medicine
DX: E03.9 Hypothyroidism, unspecified (principal)

== ENCOUNTER 2018-09-25 12:16 | Day surgery (SDC) | payer MEDICARE, BC, OTHER ==
[~2018-09-25] VITALS: Ht 165.1 cm; Wt 85.7 kg
[~2018-09-25 12:16] MED LIST changes: -ASPI1TAB PO; +ASPI81TA26 PO; -CEFT1INJ3 INJ; +CEFT1INJ5 INJ; +LIDOCAINE 2% INJ 100 MG/5 ML SDV (FOR ANES.) As Ordered ONE; +LINE1TAB PO; -LINE60TAB PO; +NS 1,000 ML IV ONE; +PROPOFOL 200 MG/20 ML VIAL As Ordered ONE; -SENN1TAB2 PO; +SENN1TAB40 PO
[2018-09-25] MEDS ORDERED: PHENYLephrine HCL 500 MCG/5 ML (100MCG/ML) SYRINGE (J2370) As Ordered ONE (14:35)
--- NOTE | 2018-09-25 14:53 | ROOR ---
Patient Name: Brenda Kimbrough Procedure Date: 09/25/2018 2:21 PM Date of : 1935 Age: 83 Room: [facility] Gender: Female Note Status: Finalized Procedure: Flexible Sigmoidoscopy Indications: Surveillance: Piecemeal removal of large sessile adenoma last colonoscopy (< 3 yrs), Personal history of colonic polyps Providers: James May MD Referring MD: Bijal Arriola DO Requesting Provider: Medicines: Monitored Anesthesia Care Complications: No immediate complications. Procedure: Pre-Anesthesia Assessment: - Prior to the procedure, a History and Physical was performed, and patient medications and allergies were reviewed. The patient is competent. The risks and benefits of the procedure and the sedation options and risks were discussed with the patient. All questions were answered and informed consent was obtained. Patient identification and proposed procedure were verified by the physician, the nurse and the anesthesiologist in the procedure room. Mental Status Examination: alert and oriented. Airway Examination: normal oropharyngeal airway and neck mobility. Respiratory Examination: clear to auscultation. CV Examination: normal. Prophylactic Antibiotics: The patient does not require prophylactic antibiotics. Prior Anticoagulants: The patient has taken no previous anticoagulant or antiplatelet agents. ASA Grade Assessment: III - A patient with severe systemic disease. After reviewing the risks and benefits, the patient was deemed in satisfactory condition to undergo the procedure. The anesthesia plan was to use monitored anesthesia care (MAC). Immediately prior to administration of medications, the patient was re-assessed for adequacy to receive sedatives. The heart rate, respiratory rate, oxygen saturations, blood pressure, adequacy of pulmonary ventilation, and response to care were monitored throughout the procedure. The physical status of the patient was re-assessed after the procedure. The Colonoscope was introduced through the anus and advanced to the descending colon. The flexible sigmoidoscopy was accomplished without difficulty. The patient tolerated the procedure well. Findings: The perianal and digital rectal examinations were normal. A 10 mm polyp was found in the rectum. The polyp was sessile. The polyp was removed with a cold snare. Resection and retrieval were complete. Verification of patient identification for the specimen was done by the physician and nurse using the patient's name, date and medical record number. Estimated blood loss was minimal. For hemostasis, two hemostatic clips were successfully placed. There was no bleeding at the end of the procedure. Multiple small and large-mouthed diverticula were found in the sigmoid colon. There was no evidence of diverticular bleeding. Normal mucosa was found from rectum to descending colon. Non-bleeding external and internal hemorrhoids were found during retroflexion. The hemorrhoids were medium-sized. Impression: - One 10 mm polyp in the rectum, removed with a cold snare. Resected and retrieved. Clips were placed. - Severe diverticulosis in the sigmoid colon. There was no evidence of diverticular bleeding. - Normal mucosa from rectum to descending colon. - Non-bleeding external and internal hemorrhoids. Recommendation: - The patient will be observed post-procedure, until all discharge criteria are met. - Patient has a contact number available for emergencies. The signs and symptoms of potential delayed complications were discussed with the patient. Return to normal activities tomorrow. Written discharge instructions were provided to the patient. - High fiber diet. - Continue present medications. - Repeat flexible sigmoidoscopy in 1 year depending on clinical and functional status. - Return to primary care physician. - Return to GI clinic in 1 year. James May MD James May MD 09/25/2018 2:53:08 PM Electronically signed by James May MD Number of Addenda: 0 Note Initiated On: 09/25/2018 2:21 PM Estimated Blood Loss: Estimated blood loss was minimal.
[2018-09-25 15:38] VITALS: BP 141/65
== END 2018-09-25 15:38 | disposition home or self-care (01) ==
LOC: M OPP 12:16
PROVIDERS: ATTEND Internal Medicine Gastroenterology
DX: K62.1 Rectal polyp (principal); K57.30 Diverticulosis of large intestine without perforation or abscess without bleeding; K64.8 Other hemorrhoids; E11.9 Type 2 diabetes mellitus without complications; Z86.010 Personal history of colon polyps
CPT/HCPCS: 45331; 80048; 82728; 83010; 83550; 83615; 85025; 85046; 88305; J2370

== ENCOUNTER → 2018-09-25 | Outpatient (REF) | payer MEDICARE, BC, OTHER, MEDICAID ==
[~2018-09-25] MED LIST changes: +INSUDET SC; +KLON0.5T PO; +LIPI10TA PO; +SPIR-10 PO; +VITA200016 PO; +ZYPR5TAB2 PO
[2018-09-25 09:15] LABS: BASO # 0.1 10^3/uL (0.0-0.2); BASO % 1.5 % (0.0-1.0); EOS # 0.1 10^3/uL (0.0-0.50); EOS % 1.2 % (0.0-3.0); HEMATOCRIT 38.4 % (36.0-47.0); HEMOGLOBIN 11.2 g/dl (12.0-15.5); LYMPH # 0.6 10^3/uL (1.5-4.5); LYMPH % 14.4 % (24.0-44.0); MEAN CORPUSCULAR HEMOGLOBIN 24.7 pg (27.0-33.0); MEAN CORPUSCULAR HGB CONC 29.2 g/dl (32.0-36.5); MEAN CORPUSCULAR VOLUME 84.8 fl (80.0-96.0); MONO # 0.6 10^3/uL (0.0-0.8); MONO % 13.7 % (0.0-5.0); NEUTROPHILS # 2.8 10^3/uL (1.8-7.7); NEUTROPHILS % 68.5 % (36.0-66.0); PLATELET COUNT, AUTOMATED 120 10^3/uL (150-450); RED BLOOD COUNT 4.53 10^6/uL (4.00-5.40)
[2018-09-25 11:13] LABS: CALCIUM LEVEL 8.5 MG/DL (8.8-10.2); CREATININE FOR GFR 1.29 MG/DL (0.55-1.30); PERCENT SATURATION 7.5 % (13.2-45.0); POTASSIUM SERUM 3.6 MEQ/L (3.5-5.1)
== END ==
PROVIDERS: ATTEND Internal Medicine
DX: I50.9 Heart failure, unspecified (principal)
CPT/HCPCS: 80048; 82728; 83010; 83550; 83615; 85025; 85046; J2370

== ENCOUNTER → 2018-10-03 | Outpatient (REF) | payer MEDICARE, BC, OTHER ==
[~2018-10-03] MED LIST changes: -LIDOCAINE 2% INJ 100 MG/5 ML SDV (FOR ANES.) As Ordered ONE; -NS 1,000 ML IV ONE; -PROPOFOL 200 MG/20 ML VIAL As Ordered ONE
[2018-10-03 09:17] LABS: HEMATOCRIT 37.8 % (36.0-47.0); HEMOGLOBIN 10.8 g/dl (12.0-15.5); MEAN CORPUSCULAR HEMOGLOBIN 24.1 pg (27.0-33.0); MEAN CORPUSCULAR HGB CONC 28.6 g/dl (32.0-36.5); MEAN CORPUSCULAR VOLUME 84.4 fl (80.0-96.0); PLATELET COUNT, AUTOMATED 140 10^3/uL (150-450); RED BLOOD COUNT 4.48 10^6/uL (4.00-5.40); WHITE BLOOD COUNT 4.3 10^3/uL (4.0-10.0)
[2018-10-03 09:52] LABS: CALCIUM LEVEL 8.8 MG/DL (8.8-10.2); CREATININE FOR GFR 1.39 MG/DL (0.55-1.30); GLOMERULAR FILTRATION RATE 38.5 (>32); POTASSIUM SERUM 3.9 MEQ/L (3.5-5.1); THYROID STIMULATING HORMONE 12.3 uIU/ML (0.358-3.740)
== END ==
PROVIDERS: ATTEND Internal Medicine
DX: I50.9 Heart failure, unspecified (principal)

== ENCOUNTER → 2018-10-16 | Outpatient (REF) | payer MEDICARE, BC, OTHER ==
--- NOTE | 2018-10-16 17:17 | REP ---
PORTABLE RIGHT ANKLE, ONE VIEW: HISTORY: Fall. COMPARISON: 07/31/2018. There is a nondisplaced oblique fracture of the distal fibula. There is no dislocation. The joint space is normal in appearance. Soft-tissue swelling is present. IMPRESSION: Nondisplaced fracture of the distal fibula. Electronically Signed by Bud Phipps MD 10/17/2018 08:17 A
--- NOTE | 2018-10-16 17:25 | REP ---
PORTABLE RIGHT FOOT, ONE VIEW: HISTORY: Fall. COMPARISON: 07/28/2018. There is a nondisplaced fracture of the distal fibula. There is narrowing of the tarsal metatarsal and first metatarsal phalangea joint spaces. Osteophytes are present at the first tarsal metatarsal joint space. IMPRESSION: Nondisplaced fracture of the distal fibula. Electronically Signed by Bud Phipps MD 10/17/2018 08:17 A
== END ==
PROVIDERS: ATTEND Internal Medicine
DX: S82.831A Other fracture of upper and lower end of right fibula, initial encounter for closed fracture (principal); M25.774 Osteophyte, right foot; W19.XXXA Unspecified fall, initial encounter; Y92.129 Unspecified place in nursing home as the place of occurrence of the external cause

== ENCOUNTER → 2018-10-24 | Outpatient (REF) | payer MEDICARE, BC, OTHER ==
[2018-10-24 09:07] LABS: CALCIUM LEVEL 8.6 MG/DL (8.8-10.2); CREATININE FOR GFR 1.42 MG/DL (0.55-1.30); GLOMERULAR FILTRATION RATE 37.6 (>32); POTASSIUM SERUM 3.9 MEQ/L (3.5-5.1)
== END ==
PROVIDERS: ATTEND Internal Medicine
DX: I50.9 Heart failure, unspecified (principal)

== ENCOUNTER → 2018-10-26 | Outpatient (REF) | payer MEDICARE, BC, OTHER ==
[2018-10-26 13:42] LABS: HEMATOCRIT 38.1 % (36.0-47.0); HEMOGLOBIN 10.8 g/dl (12.0-15.5); MEAN CORPUSCULAR HEMOGLOBIN 24.2 pg (27.0-33.0); MEAN CORPUSCULAR HGB CONC 28.3 g/dl (32.0-36.5); MEAN CORPUSCULAR VOLUME 85.2 fl (80.0-96.0); PLATELET COUNT, AUTOMATED 122 10^3/uL (150-450); RED BLOOD COUNT 4.47 10^6/uL (4.00-5.40); WHITE BLOOD COUNT 4.2 10^3/uL (4.0-10.0)
[2018-10-26 14:35] LABS: CALCIUM LEVEL 8.4 MG/DL (8.8-10.2); CREATININE FOR GFR 1.62 MG/DL (0.55-1.30); GLOMERULAR FILTRATION RATE 32.3 (>32); POTASSIUM SERUM 4.4 MEQ/L (3.5-5.1); THYROID STIMULATING HORMONE 20.1 uIU/ML (0.358-3.740)
== END ==
PROVIDERS: ATTEND Internal Medicine
DX: R41.82 Altered mental status, unspecified (principal)

== ENCOUNTER → 2018-10-31 | Outpatient (REF) | payer MEDICARE, BC, OTHER ==
[2018-10-31 10:22] LABS: BASO # 0.1 10^3/uL (0.0-0.2); EOS % 0.8 % (0.0-3.0); HEMATOCRIT 38.8 % (36.0-47.0); LYMPH # 0.6 10^3/uL (1.5-4.5); LYMPH % 11.9 % (24.0-44.0); MEAN CORPUSCULAR HEMOGLOBIN 24.3 pg (27.0-33.0); MEAN CORPUSCULAR HGB CONC 28.4 g/dl (32.0-36.5); MEAN CORPUSCULAR VOLUME 85.7 fl (80.0-96.0); MONO % 18.4 % (0.0-5.0); NEUTROPHILS # 3.5 10^3/uL (1.8-7.7); NEUTROPHILS % 67.7 % (36.0-66.0); PLATELET COUNT, AUTOMATED 118 10^3/uL (150-450); RED BLOOD COUNT 4.53 10^6/uL (4.00-5.40); WHITE BLOOD COUNT 5.2 10^3/uL (4.0-10.0)
[2018-10-31 10:43] LABS: ALBUMIN 2.8 GM/DL (3.2-5.2); BILIRUBIN,TOTAL 2.8 MG/DL (0.2-1.0); CALCIUM LEVEL 8.7 MG/DL (8.8-10.2); CREATININE FOR GFR 1.42 MG/DL (0.55-1.30); GLOMERULAR FILTRATION RATE 37.6 (>32); MB/CK RELATIVE INDEX 2.25 (< OR =4); POTASSIUM SERUM 5.3 MEQ/L (3.5-5.1); TOTAL PROTEIN 7.3 GM/DL (6.4-8.2); TROPONIN I 0.05 NG/ML (< 0.10)
--- NOTE | 2018-10-31 12:40 | REP ---
PORTABLE CHEST X-RAY: Single view. HISTORY: Cough. CHF. COMPARISON STUDY: January 10, 2018. FINDINGS: The patient is rotated quite a bit to the left for the current exposure. There is a bipolar pacemaker in the right heart via the left side as before. Moderate cardiac enlargement is seen. There are small to moderate bilateral pleural effusions increased from the prior study. There is vascular congestion. No pulmonary edema is appreciated. IMPRESSION: Small to moderate bilateral pleural effusions. Cardiomegaly with pacemaker. Vascular cephalization. No evidence of pulmonary edema. Electronically Signed by Bret Quiroz MD 10/31/2018 10:26 P
== END ==
PROVIDERS: ATTEND Internal Medicine
DX: J90 Pleural effusion, not elsewhere classified (principal); I50.9 Heart failure, unspecified; R05 Cough; Z95.0 Presence of cardiac pacemaker